=== PATIENT | male | born 1985 | race Caucasian/White ===

== ENCOUNTER 2019-06-10 19:59 | Emergency (ER) | payer OTHER ==
--- NOTE | 2019-06-10 20:30 | ER ---
Nurse's Notes [facility] Name: Tadeo Thakur Age: 33 yrs Sex: Male : 1985 Arrival Date: 06/10/2019 Time: 20:01 Bed 5 Private MD: Diagnosis: Dental caries;Dental root caries;Dentalgia Presentation: 06/10 20:10 Presenting complaint: Patient states: "Toothache since a couple of days now". cc3 Transition of care: patient was not received from another setting of care. Onset of symptoms is unknown. Risk Assessment: Do you want to hurt yourself or someone else? Patient reports no desire to harm self or others. Initial Sepsis Screen: Does the patient meet any 2 criteria? No. Patient's initial sepsis screen is negative. Does the patient have a suspected source of infection? No. Patient's initial sepsis screen is negative. Care prior to arrival: Medication(s) given: Motrin, 600 mg, taken an hour ago at home. 20:10 Method Of Arrival: Ambulatory cc3 20:10 Acuity: HAYDER 4 cc3 Triage Assessment: 20:10 General: Appears in no apparent distress. uncomfortable, Behavior is calm, cooperative, cc3 appropriate for age. Pain: Complains of pain in right upper and lower tooth. EENT: Reports pain in right upper and lower tooth. Neuro: Level of Consciousness is awake, alert, obeys commands, Oriented to person, place, time, situation, Appropriate for age. Cardiovascular: Denies chest pain, Capillary refill < 3 seconds Patient's skin is warm and dry. Respiratory: Airway is patent Respiratory effort is even, unlabored, Respiratory pattern is regular, symmetrical. GI: Abdomen is round non-distended. : No signs and/or symptoms were reported regarding the genitourinary system. Derm: Skin is intact, is healthy with good turgor, Skin is pink, warm \\T\\ dry. normal. Musculoskeletal: Circulation, motion, and sensation intact. Range of motion: intact in all extremities. Historical: - Allergies: 20:10 PENICILLINS; cc3 - PSHx: 20:10 Hernia repair; Appendectomy; left knee surgery; cc3 - Immunization history:: Adult Immunizations up to date. - Social history:: Smoking status: Patient uses tobacco products, smokes one pack cigarettes per day. - Ebola Screening: : No symptoms or risks identified at this time. Screenin:10 Abuse screen: Denies threats or abuse. Denies injuries from another. Nutritional cc3 screening: No deficits noted. Tuberculosis screening: No symptoms or risk factors identified. Fall Risk Ambulatory Aid- None/Bed Rest/Nurse Assist (0 pts). Gait- Normal/Bed Rest/Wheelchair (0 pts) Mental Status- Oriented to own ability (0 pts). Assessment: 20:10 General: see triage assessment. cc3 20:35 Reassessment: Patient appears in no apparent distress at this time. Patient and/or cc3 family updated on plan of care and expected duration. Pain level reassessed. Patient is alert, oriented x 3, equal unlabored respirations, skin warm/dry/pink. MARV Mendez discharged the patient home with prescriptions given. No IV cannula in situ. Patient left ER vitally stable and ambulatory. No valuables left in the patient's room. Patient states symptoms have improved. Vital Signs: 20:10 BP 129 / 88; Pulse 95; Resp 17 S; Temp 98.3(O); Pulse Ox 98% on R/A; Weight 106.59 kg cc3 (R); Height 5 ft. 9 in. (175.26 cm) (R); Pain 7/10; 20:10 Body Mass Index 34.70 (106.59 kg, 175.26 cm) cc3 ED Course: 20:01 Patient arrived in ED. am2 20:10 Patient has correct armband on for positive identification. Bed in low position. Call cc3 light in reach. Side rails up X 1. Pulse ox on. NIBP on. 20:10 Arm band placed on right wrist. Patient notified of wait time. cc3 20:11 Elsa Velez is Primary Nurse. cc3 20:17 Matthias Mendez PA is PHCP. jr8 20:17 Lawrence Beatty MD is Attending Physician. jr8 20:21 Triage completed. cc3 20:35 No provider procedures requiring assistance completed. Patient did not have IV access cc3 during this emergency room visit. Administered Medications: No medications were administered Outcome: 20:29 Discharge ordered by . jr8 20:35 Discharged to home ambulatory. cc3 20:35 Condition: stable 20:35 Discharge instructions given to patient, Instructed on discharge instructions, follow up and referral plans. medication usage, Demonstrated understanding of instructions, follow-up care, medications, Prescriptions given X 2. 20:38 Patient left the ED. cc3 Signatures: Matthias Mendez PA PA jr8 Michelle Patricia am2 Elsa Velez cc3
--- NOTE | 2019-06-10 20:30 | EDPHYS ---
Physician Documentation [facility] Name: Tadeo Thakur Age: 33 yrs Sex: Male : 1985 Arrival Date: 06/10/2019 Time: 20:01 Bed 5 Private MD: ED Physician Lawrence Beatty HPI: 06/10 20:25 This 33 yrs old Male presents to ER via Ambulatory with complaints of jr8 Toothache. 20:25 The patient presents with pain. The problem is located in the mouth. Onset: The jr8 symptoms/episode began/occurred acutely, 3 day(s) ago. Duration: The symptoms are continuous. Modifying factors: The symptoms are alleviated by nothing, the symptoms are aggravated by chewing, talking. Associated signs and symptoms: The patient has no apparent associated signs or symptoms. Severity of symptoms: At their worst the symptoms were mild, in the emergency department the symptoms are unchanged. The patient has experienced similar episodes in the past, a few times. The patient has not recently seen a physician. Patient with history of chronic dental decay and poor dentition. State that right upper and lower front teeth started to hurt three days ago. Has been taking Ibuprofen but with only minimal relief . Historical: - Allergies: 20:10 PENICILLINS; cc3 - PSHx: 20:10 Hernia repair; Appendectomy; left knee surgery; cc3 - Immunization history:: Adult Immunizations up to date. - Social history:: Smoking status: Patient uses tobacco products, smokes one pack cigarettes per day. - Ebola Screening: : No symptoms or risks identified at this time. ROS: 20:25 Eyes: Negative for injury, pain, redness, and discharge, Neck: Negative for injury, jr8 pain, and swelling, Cardiovascular: Negative for chest pain, palpitations, and edema, Respiratory: Negative for shortness of breath, cough, wheezing, and pleuritic chest pain, Abdomen/GI: Negative for abdominal pain, nausea, vomiting, diarrhea, and constipation, Back: Negative for injury and pain, MS/Extremity: Negative for injury and deformity, Skin: Negative for injury, rash, and discoloration, Neuro: Negative for headache, weakness, numbness, tingling, and seizure. 20:25 ENT: Positive for dental pain, Gum pain Exam: 20:25 Eyes: Pupils equal round and reactive to light, extra-ocular motions intact. Lids and jr8 lashes normal. Conjunctiva and sclera are non-icteric and not injected. Cornea within normal limits. Periorbital areas with no swelling, redness, or edema. Neck: Trachea midline, no thyromegaly or masses palpated, and no cervical lymphadenopathy. Supple, full range of motion without nuchal rigidity, or vertebral point tenderness. No Meningismus. Cardiovascular: Regular rate and rhythm with a normal S1 and S2. No gallops, murmurs, or rubs. Normal PMI, no JVD. No pulse deficits. Respiratory: Lungs have equal breath sounds bilaterally, clear to auscultation and percussion. No rales, rhonchi or wheezes noted. No increased work of breathing, no retractions or nasal flaring. Abdomen/GI: Soft, non-tender, with normal bowel sounds. No distension or tympany. No guarding or rebound. No evidence of tenderness throughout. Back: No spinal tenderness. No costovertebral tenderness. Full range of motion. Skin: Warm, dry with normal turgor. Normal color with no rashes, no lesions, and no evidence of cellulitis. MS/ Extremity: Pulses equal, no cyanosis. Neurovascular intact. Full, normal range of motion. Neuro: Awake and alert, GCS 15, oriented to person, place, time, and situation. Cranial nerves II-XII grossly intact. Motor strength 5/5 in all extremities. Sensory grossly intact. Cerebellar exam normal. Normal gait. 20:25 ENT: Exam is negative for earache, ear discharge, TM abnormalities, nasal discharge, Mouth: Lips: moist, Oral mucosa: pink and intact, moist, Gums: reddened, on the frenulum and gums, Tongue: is moist, Posterior pharynx: Airway: patent, Tonsils: are normal in appearance, Uvula: midline, swelling, is not appreciated, erythema, is not appreciated, Dental exam: dental caries, that is moderate, diffusely, pain, that is moderate, specifically in the upper right cuspid (#6), upper right lateral incisor (#7), lower right first bicuspid (#28) and lower right second bicuspid (#29). Vital Signs: 20:10 BP 129 / 88; Pulse 95; Resp 17 S; Temp 98.3(O); Pulse Ox 98% on R/A; Weight 106.59 kg cc3 (R); Height 5 ft. 9 in. (175.26 cm) (R); Pain 7/10; 20:10 Body Mass Index 34.70 (106.59 kg, 175.26 cm) cc3 MDM: 20:17 Patient medically screened. jr8 20:25 Data reviewed: vital signs, nurses notes, and as a result, I will discharge patient. jr8 Data interpreted: Pulse oximetry: on room air is 98 %. Interpretation: normal. Counseling: I had a detailed discussion with the patient and/or guardian regarding: the historical points, exam findings, and any diagnostic results supporting the discharge/admit diagnosis, the need for outpatient follow up, a dentist, to return to the emergency department if symptoms worsen or persist or if there are any questions or concerns that arise at home. Administered Medications: No medications were administered Disposition: 06/11 06:37 Co-signature as Attending Physician, Lawrence Beatty MD I agree with the assessment and 4 plan of care. Disposition: 06/10/19 20:29 Discharged to Home. Impression: Dental caries, Dental root caries, Dentalgia. - Condition is Stable. - Discharge Instructions: Dental Caries, Adult, Dental Pain. - Prescriptions for Clindamycin HCl 300 mg Oral Capsule - take 1 capsule by ORAL route every 6 hours for 10 days; 40 capsule. Tramadol 50 mg Oral Tablet - take 2 tablet by ORAL route every 8 hours as needed; 16 tablet. - Medication Reconciliation Form, Thank You Letter, Antibiotic Education, Prescription Opioid Use form. - Follow up: Private Physician; When: 5 - 6 days; Reason: Recheck today's complaints, Continuance of care, Re-evaluation by your physician. - Problem is new. - Symptoms have improved. Signatures: Matthias Mendez PA PA jr8 Lawrence Beatty MD MD 4 Elsa Velez 3 Corrections: (The following items were deleted from the chart) 06/10 20:38 20:29 06/10/2019 20:29 Discharged to Home. Impression: Dental caries; Dental root cc3 caries; Dentalgia. Condition is Stable. Forms are Medication Reconciliation Form, Thank You Letter, Antibiotic Education, Prescription Opioid Use. Follow up: Private Physician; When: 5 - 6 days; Reason: Recheck today's complaints, Continuance of care, Re-evaluation by your physician. Problem is new. Symptoms have improved. jr8
== END 2019-06-10 20:38 | disposition home or self-care (01) ==
LOC: ER 19:59
DX: K02.7 Dental root caries (principal); K02.9 Dental caries, unspecified; F17.210 Nicotine dependence, cigarettes, uncomplicated; Z88.0 Allergy status to penicillin
CPT/HCPCS: 99283

== ENCOUNTER 2020-06-14 13:29 | Emergency (ER) | payer OTHER ==
[2020-06-14] MEDS ORDERED: MORPHINE 4 MG/ML SYR ONE (14:29)
[2020-06-14] MEDS ORDERED: NA CHLORIDE 0.9% 500 ML ONE (14:30)
[2020-06-14] MEDS ORDERED: ONDANSETRON 4 MG/2 ML VIAL ONE (14:30)
[2020-06-14 14:54] LABS: Absolute Lymphocytes (CBC) 3.7 K/uL (0.7-4.9); Basophils % 1.6 % (0-1.3); Hematocrit 44.1 % (39.6-49.0); Lymphocytes % 21.7 % (15.3-44.8); MPV 9.8 fL (7.6-11.3); RBC Red Blood Cell Count 4.76 M/uL (4.33-5.43)
--- NOTE | 2020-06-14 14:54 | RAD REPORT ---
EXAM DESCRIPTION: US - Scrotum Testicles - 06/14/2020 2:22 pm CLINICAL HISTORY: Testicular pain COMPARISON: None FINDINGS: Right testicle measures 4.3 x 3 x 2.7 centimeters. Echotexture is homogeneous. Normal bloo d flow Left testicle measures 4.2 x 2.7 x 2.2 centimeters. Echotexture is homogeneous. Normal blood flow The epididymides are normal in size and echotexture. Normal blood flow is seen. A 7 millimeter left spermatocele Left varicocele IMPRESSION: Left varicocele
[2020-06-14 15:09] LABS: Potassium 3.6 mmol/L (3.5-5.1)
--- NOTE | 2020-06-14 15:33 | EDPHYS ---
Physician Documentation [facility] Name: Tadeo Thakur Age: 34 yrs Sex: Male : 1985 Arrival Date: 06/14/2020 Time: 13:31 Bed 24 Private MD: ED Physician Rickie Hutson HPI: 06/14 19:27 This 34 yrs old Male presents to ER via Ambulatory with complaints of kdr Testicular Pain. 19:27 The patient presents with scrotal pain, of the left side. Onset: The symptoms/episode kdr began/occurred gradually, 4 day(s) ago. Modifying factors: The symptoms are alleviated by nothing, the symptoms are aggravated by movement, pressure. Associated signs and symptoms: The patient has no apparent associated signs or symptoms. Severity of symptoms: At their worst the symptoms were mild, moderate, in the emergency department the symptoms are unchanged. The patient has not experienced similar symptoms in the past. The patient has not recently seen a physician. Thinks he may have had a abscess before on his scrotum. Historical: - Allergies: 13:43 PENICILLINS; ss - Home Meds: 13:43 None [Active]; ss - PMHx: 13:43 None; ss - PSHx: 13:43 Hernia repair; Appendectomy; left knee surgery; ss - Immunization history:: Adult Immunizations up to date. - Social history:: Smoking status: Patient reports the use of cigarette tobacco products, smokes one pack cigarettes per day. ROS: 19:27 Constitutional: Negative for fever, chills, and weight loss, Eyes: Negative for injury, kdr pain, redness, and discharge, Neck: Negative for injury, pain, and swelling, Cardiovascular: Negative for chest pain, palpitations, and edema, Respiratory: Negative for shortness of breath, cough, wheezing, and pleuritic chest pain, Abdomen/GI: Negative for abdominal pain, nausea, vomiting, diarrhea, and constipation, Back: Negative for injury and pain, MS/Extremity: Negative for injury and deformity, Skin: Negative for injury, rash, and discoloration, Neuro: Negative for headache, weakness, numbness, tingling, and seizure activity. Psych: Negative for depression, anxiety, suicide ideation, homicidal ideation, and hallucinations, Allergy/Immunology: Negative for hives, rash, and allergies, Endocrine: Negative for neck swelling, polydipsia, polyuria, polyphagia, and marked weight changes, Hematologic/Lymphatic: Negative for swollen nodes, abnormal bleeding, and unusual bruising. 19:27 : Positive for testicular pain of the left testicle. Exam: 19:27 Constitutional: This is a well developed, well nourished patient who is awake, alert, kdr and in no acute distress. Head/Face: Normocephalic, atraumatic. 19:27 : There is a draining abscess on the left upper area of the left scrotum. There is a large area of surrounding induration. Vital Signs: 13:40 BP 142 / 75; Pulse 125; Resp 20; Temp 98.2(O); Pulse Ox 98% on R/A; Weight 104.33 kg; ss Height 5 ft. 9 in. (175.26 cm); Pain 8/10; 16:30 BP 119 / 51; Pulse 86; Resp 18; Pulse Ox 99% on R/A; Pain 5/10; ls4 17:37 BP 131 / 80; Pulse 75; Resp 16; Temp 97.9(O); Pulse Ox 99% on R/A; Pain 3/10; ls4 18:02 BP 133 / 80; Pulse 79; Resp 17; Pulse Ox 99% on R/A; Pain 5/10; ls4 19:00 BP 122 / 72; Pulse 90; Resp 14; Temp 98.0; Pulse Ox 99% on R/A; Pain 4/10; ls4 20:00 BP 121 / 57; Pulse 74; Resp 16; Temp 98.0; Pulse Ox 98% on R/A; Pain 5/10; ls4 13:40 Body Mass Index 33.96 (104.33 kg, 175.26 cm) ss MDM: 15:32 Patient medically screened. kdr 19:27 Data reviewed: vital signs, nurses notes. Counseling: I had a detailed discussion with kdr the patient and/or guardian regarding: the historical points, exam findings, and any diagnostic results supporting the discharge/admit diagnosis, lab results, radiology results, the need to transfer to another facility, [facility] does not immediately have the required specialist, Need urologist to I\T\D - none available here . ED course: The patient has subsequently decided to leave - states he has things to take care of at home - his has been ill. [facility]. Advised hi that immediate follow-up very important and that if [facility] that he should come back to [facility]. 20:45 Differential diagnosis: nonspecific abdominal pain, UTI, Scrotal Abscess. health system 06/14 13:54 Order name: CBC with Diff; Complete Time: 15:20 kdr 06/14 13:54 Order name: Chem 7; Complete Time: 15:20 kdr 06/14 13:54 Order name: Scrotum Testicles US; Complete Time: 20:37 kdr 06/14 19:28 Order name: Urine Dipstick--Ancillary (enter results); Complete Time: 20:37 eb 06/14 13:54 Order name: Urine Dipstick-Ancillary (obtain specimen); Complete Time: 18:56 kdr Administered Medications: 14:35 Drug: morphine 4 mg Route: IVP; Site: right antecubital; ls4 17:43 Follow up: Response: No adverse reaction; Marked relief of symptoms ls4 14:35 Drug: Zofran (Ondansetron) 4 mg Route: IVP; Site: right antecubital; ls4 16:35 Follow up: Response: No adverse reaction; Marked relief of symptoms ls4 14:35 Drug: NS 0.9% 500 ml Route: IV; Rate: bolus; Site: right antecubital; ls4 17:05 Follow up: IV Status: Completed infusion; IV Intake: 500ml ls4 16:07 Drug: Cipro 500 mg Route: PO; ls4 16:30 Follow up: Response: No adverse reaction ls4 16:08 Drug: Clindamycin 900 mg Route: IVPB; Infused Over: 30 mins; Site: right antecubital; ls4 16:38 Follow up: IV Status: Completed infusion; IV Intake: 50ml ls4 Disposition: 06/14/20 15:32 Transfer ordered to [facility]. Diagnosis is Scrotal Abscess. - Reason for transfer: Higher level of care. - Accepting physician is [facility]. - Condition is Fair. - Problem is new. - Symptoms have improved. - Notes: [facility] or return here as soon as possible. If you do not get immediate evaluation by a Urologist or surgeon you may suffer catistrophic injury to your scrotum and penis Signatures: Dispatcher [employer] Moustapha Gregg RN RN sg Gume Ge MD MD kdr Tamera San RN RN ss Lisa Mccoy RN RN ls4 Rickie Hutson MD MD [id number] Corrections: (The following items were deleted from the chart) 21:58 15:32 06/14/2020 15:32 Transfer ordered to [facility]. Diagnosis sg is Scrotal Abscess. Reason for transfer: Higher level of care. Accepting physician is [facility]. Condition is Fair. Problem is new. Symptoms have improved. kdr
--- NOTE | 2020-06-14 15:33 | ER ---
Nurse's Notes [facility] Name: Tadeo Thakur Age: 34 yrs Sex: Male : 1985 Arrival Date: 06/14/2020 Time: 13:31 Bed 24 Private MD: Diagnosis: Scrotal Abscess Presentation: 06/14 13:40 Chief complaint: Patient states: scrotal pain and swelling x 3-4 days. Pt believes he ss may have an abscess. Coronavirus screen: Patient denies a cough. Patient denies shortness of breath or difficulty breathing. Patient denies measured and/or subjective temperature greater than 100.4F prior to today's visit. Patient denies travel on a cruise ship or to a country the [facility] currently lists as an affected area. Patient denies contact with known and/or suspected case of COVID-19. Ebola Screen: Patient denies exposure to infectious person. Patient denies travel to an Ebola-affected area in the 21 days before illness onset. Initial Sepsis Screen: Does the patient meet any 2 criteria? HR > 90 bpm. No. Patient's initial sepsis screen is negative. Does the patient have a suspected source of infection? Yes: Skin breakdown/wound. Risk Assessment: Do you want to hurt yourself or someone else? Patient reports no desire to harm self or others. Onset of symptoms was June 10, 2020. 13:40 Method Of Arrival: Ambulatory ss 13:40 Acuity: HAYDER 2 ss Triage Assessment: 16:13 General: Appears in no apparent distress. comfortable, Behavior is calm, cooperative. ls4 Pain: Complains of pain in groin Pain currently is 10 out of 10 on a pain scale. Neuro: No deficits noted. Cardiovascular: No deficits noted. Respiratory: No deficits noted. : Reports Scrotal pain: sudden onset. Historical: - Allergies: 13:43 PENICILLINS; ss - Home Meds: 13:43 None [Active]; ss - PMHx: 13:43 None; ss - PSHx: 13:43 Hernia repair; Appendectomy; left knee surgery; ss - Immunization history:: Adult Immunizations up to date. - Social history:: Smoking status: Patient reports the use of cigarette tobacco products, smokes one pack cigarettes per day. Screenin:09 Abuse screen: Denies threats or abuse. Denies injuries from another. Nutritional ls4 screening: No deficits noted. Tuberculosis screening: No symptoms or risk factors identified. Fall Risk None identified. Assessment: 15:15 Reassessment: Patient appears in no apparent distress at this time. Patient and/or ls4 family updated on plan of care and expected duration. Pain level reassessed. Patient is alert, oriented x 3, equal unlabored respirations, skin warm/dry/pink. 18:02 Reassessment: Patient and/or family updated on plan of care and expected duration. Pain ls4 level reassessed. Patient is alert, oriented x 3, equal unlabored respirations, skin warm/dry/pink. Patient states symptoms have improved. Vital Signs: 13:40 BP 142 / 75; Pulse 125; Resp 20; Temp 98.2(O); Pulse Ox 98% on R/A; Weight 104.33 kg; ss Height 5 ft. 9 in. (175.26 cm); Pain 8/10; 16:30 BP 119 / 51; Pulse 86; Resp 18; Pulse Ox 99% on R/A; Pain 5/10; ls4 17:37 BP 131 / 80; Pulse 75; Resp 16; Temp 97.9(O); Pulse Ox 99% on R/A; Pain 3/10; ls4 18:02 BP 133 / 80; Pulse 79; Resp 17; Pulse Ox 99% on R/A; Pain 5/10; ls4 19:00 BP 122 / 72; Pulse 90; Resp 14; Temp 98.0; Pulse Ox 99% on R/A; Pain 4/10; ls4 20:00 BP 121 / 57; Pulse 74; Resp 16; Temp 98.0; Pulse Ox 98% on R/A; Pain 5/10; ls4 13:40 Body Mass Index 33.96 (104.33 kg, 175.26 cm) ED Course: 13:31 Patient arrived in ED. ag5 13:42 Triage completed. ss 13:43 Arm band placed on right wrist. ss 13:51 Lisa Mccoy, PARMJIT is Primary Nurse. ls4 13:52 Gume Ge MD is Attending Physician. kdr 14:01 Patient has correct armband on for positive identification. Bed in low position. Call ls4 light in reach. Side rails up X 1. drafter castings on. Pulse ox on. NIBP on. 14:02 No provider procedures requiring assistance completed. Inserted saline lock: 18 gauge ls4 in right antecubital area, using aseptic technique. Blood collected. 14:02 Initial lab(s) drawn, by me, sent to lab. Urine collected:. Patient maintains SpO2 ls4 saturation greater than 95% on room air. 14:16 Scrotum Testicles US In Process Unspecified. EDMS 16:22 initiated a transfer with Edgar from the [facility]/ faxed over the patient records as eb requested to [phone]. 18:02 Resting quietly. ls4 19:01 refaxed patient information to [place] from the [place] transfer center. eb 20:45 Attending Physician role handed off by Gume Ge MD [facility] 20:45 Rickie Hutson MD is Attending Physician. [facility] 21:08 Report given to Drake PARNELL, charge nurse [facility] of [place]. ls4 Administered Medications: 14:35 Drug: morphine 4 mg Route: IVP; Site: right antecubital; ls4 17:43 Follow up: Response: No adverse reaction; Marked relief of symptoms ls4 14:35 Drug: Zofran (Ondansetron) 4 mg Route: IVP; Site: right antecubital; ls4 16:35 Follow up: Response: No adverse reaction; Marked relief of symptoms ls4 14:35 Drug: NS 0.9% 500 ml Route: IV; Rate: bolus; Site: right antecubital; ls4 17:05 Follow up: IV Status: Completed infusion; IV Intake: 500ml ls4 16:07 Drug: Cipro 500 mg Route: PO; ls4 16:30 Follow up: Response: No adverse reaction ls4 16:08 Drug: Clindamycin 900 mg Route: IVPB; Infused Over: 30 mins; Site: right antecubital; ls4 16:38 Follow up: IV Status: Completed infusion; IV Intake: 50ml ls4 Intake: 16:38 IV: 50ml; Total: 50ml. ls4 17:05 IV: 500ml; Total: 550ml. ls4 Outcome: 15:32 ER care complete, transfer ordered by . kdr 21:58 Patient left the ED. sg Signatures: Dispatcher [employer] EDIA Moustapha Elena RN RN Gume Ge MD MD [facility] Tamera San RN RN ss Jie Richardson Lisa, RN RN ls4 Mir Verdin ag5 Rickie Hutson MD MD 7 Corrections: (The following items were deleted from the chart) 13:48 13:40 Acuity: HAYDER 3 ss ss 17:43 17:42 Response: No adverse reaction; Marked relief of symptoms ls4 ls4 17: 17:05 BP 170 / 6; Response: No adverse reaction; Marked relief of symptoms ls4 ls4
[2020-06-14] MEDS ORDERED: CIPROFLOXACIN HCL 500 MG TAB ONE (16:11)
[2020-06-14] MEDS ORDERED: CLINDAMYCIN 900MG/D5W 900 MG/50 ML IVPB IV ONE (16:11)
[2020-06-14 19:31] LABS: Urine Blood TRACE (NEG); Urine Glucose NEGATIVE (NEG); Urine Protein NEGATIVE (NEG); Urine Specific Gravity 1.025 (1.005-1.030); Urine pH 5.5 (5.0-7.0)
[2020-06-14 22:26] VITALS: TEMP 98
[2020-06-14 22:28] VITALS: BP 121/57; O2SAT 98
== END 2020-06-14 21:58 ==
LOC: ER 13:29
DX: N49.2 Inflammatory disorders of scrotum (principal); F17.210 Nicotine dependence, cigarettes, uncomplicated; Z88.0 Allergy status to penicillin
CPT/HCPCS: 96365; 96361; 85025; 80048; 36415; 81003; 76870; 96375; 99285; J7040; J2405

== ENCOUNTER 2021-01-12 15:55 | Inpatient (IN) | payer OTHER, SELFPAY ==
--- OUTSIDE RECORDS SUMMARY | 2021-01-12 15:58 | XMS REPORT | Continuity of Care Document ---
:1985 Author Organization [facility] t Address [facility] Elijah Cheng [address] [place] [id number] Care Team Providers Name Role Phone Shree Crowell NP Attending Clinician Problems This patient has no known problems. Allergies, Adverse Reactions, Alerts This patient has no known allergies or adverse reactions. Medications This patient has no known medications. Procedures This patient has no known procedures. Encounters Start End Encounter Admission Attending Care Care Encounter Source Date/Time Date/Time Type Type Clinicians Facility Department ID 2020-11-21 2020-11-21 Emergency [facility] [id number] 09:58:00 10:54:00 Ursula Antunez [id number] [place] [id number] [place] [id number] Results This patient has no known results.
[2021-01-12] MEDS ORDERED: HYDROCODONE/CHLORPHEN 5 ML/OSYR ONE (19:33)
[2021-01-12] MEDS ORDERED: NA CHLORIDE 0.9% 1,000 ML ONE (19:34)
[2021-01-12] MEDS ORDERED: ALBUTEROL INHALER 60 PUFF/8 GM IH ONE (19:34)
[2021-01-12] MEDS ORDERED: dexAMETHasone 10 MG/ML VIAL ONE (19:34)
[2021-01-12 19:37] LABS: Absolute Lymphocytes (CBC) 1.9 K/uL (0.7-4.9); Basophils % 0.6 % (0-1.3); Lymphocytes % 23.5 % (15.3-44.8); MPV 9.7 fL (7.6-11.3); RBC Red Blood Cell Count 4.43 M/uL (4.33-5.43)
[2021-01-12 19:56] LABS: ALT/SGPT 45 U/L (12-78); AST/SGOT 69 U/L (15-37); Albumin 3.2 g/dL (3.4-5.0); Alkaline Phosphatase 52 U/L (45-117); BUN Blood Urea Nitrogen 12 mg/dL (7-18); Bicarbonate 27 mmol/L (21-32); Bilirubin Total 0.7 mg/dL (0.2-1.0); Glucose Level 99 mg/dL (74-106); Protein, Total 7.4 g/dL (6.4-8.2); Sodium Level 135 mmol/L (136-145); Troponin (Emerg Dept Use Only) < 0.02 ng/mL (0.0-0.045)
--- NOTE | 2021-01-12 20:43 | RAD REPORT ---
EXAM DESCRIPTION: RAD - Chest Single View - 01/12/2021 7:24 pm CLINICAL HISTORY: SOB, COVID positive COMPARISON: None TECHNIQUE: AP portable chest image was obtained 01/12/2021 7:24 pm . FINDINGS: Bilateral patchy airspace opacification is present. No focal lobar consolidation. Heart an d vasculature are normal. No measurable pleural effusion and no pneumothorax. No acute bony abnormali ty seen. No acute aortic findings suspected. IMPRESSION: Bilateral lung parenchymal opacification consistent with viral infiltrate. Given the provided clinical history, bilateral COVID-19 pneumonia is most likely.
--- NOTE | 2021-01-12 21:32 | ER ---
Nurse's Notes [facility] Name: Tadeo Thakur Age: 35 yrs Sex: Male : 1985 Arrival Date: 01/12/2021 Time: 15:58 Bed 16 Private MD: Diagnosis: Pneumonia due to SARS-associated coronavirus Presentation: 01/12 16:16 Chief complaint: Patient states: Covid+ 01/04/2021. S/S started 01/02/2021. Cough and SOB ca1 is getting worse, fever on and off, loss of appetite and chest pains. Light headed and muscle spasms. Coronavirus screen: Client denies travel out of the [place] in the last 14 days. Client reports previous positive COVID test result. Date of collection: January 04, 2021. Ebola Screen: Patient negative for fever greater than or equal to 101.5 degrees Fahrenheit, and additional compatible Ebola Virus Disease symptoms Patient denies exposure to infectious person. Patient denies travel to an Ebola-affected area in the 21 days before illness onset. No symptoms or risks identified at this time. Initial Sepsis Screen: Does the patient meet any 2 criteria? No. Patient's initial sepsis screen is negative. Does the patient have a suspected source of infection? No. Patient's initial sepsis screen is negative. Risk Assessment: Do you want to hurt yourself or someone else? Patient reports no desire to harm self or others. Onset of symptoms was January 12, 2021. 16:16 Method Of Arrival: Ambulatory ca1 16:16 Acuity: HAYDER 3 ca1 Triage Assessment: 23:55 Respiratory: Reports shortness of breath cough that is Onset: The symptoms/episode ll2 began/occurred the patient has moderate shortness of breath. 23:55 General: Appears distressed. ll2 Historical: - Allergies: 16:20 PENICILLINS; ca1 - Home Meds: 16:20 None [Active]; ca1 - PMHx: 16:20 None; ca1 - PSHx: 16:20 Hernia repair; Appendectomy; left knee surgery; ca1 - Immunization history:: Flu vaccine is not up to date. - Social history:: Smoking status: Patient reports the use of cigarette tobacco products, smokes one pack cigarettes per day. Screenin:21 Abuse screen: Denies threats or abuse. Denies injuries from another. Nutritional jl7 screening: No deficits noted. Tuberculosis screening: No symptoms or risk factors identified. Fall Risk IV access (20 points). Total Lakhani Fall Scale indicates No Risk (0-24 pts). Assessment: 19:30 General: Appears distressed, comfortable, Behavior is. Pain: Denies pain. Neuro: Level ll2 of Consciousness is awake, alert, obeys commands, Oriented to person, place, time, situation. Cardiovascular: Patient's skin is warm and dry. Respiratory: Airway is patent Respiratory effort is even, unlabored, Respiratory pattern is regular, symmetrical, Breath sounds are coarse. 20:30 Reassessment: Patient and/or family updated on plan of care and expected duration. Pain ll2 level reassessed. Patient is alert, oriented x 3, equal unlabored respirations, skin warm/dry/pink. 21:30 Reassessment: Patient and/or family updated on plan of care and expected duration. Pain ll2 level reassessed. Patient is alert, oriented x 3, equal unlabored respirations, skin warm/dry/pink. 22:30 Reassessment: Patient and/or family updated on plan of care and expected duration. Pain ll2 level reassessed. Patient is alert, oriented x 3, equal unlabored respirations, skin warm/dry/pink. 01/13 00:41 Reassessment: pt transferred to 4th floor via stretcher with tech, report called to bharat last RN. Vital Signs: 01/12 16:16 BP 109 / 61; Pulse 106; Resp 20 S; Temp 97.8(TE); Pulse Ox 97% on R/A; Weight 113.4 kg ca1 (R); Height 5 ft. 9 in. (175.26 cm) (R); Pain 9/10; 20:55 BP 124 / 80; Pulse 104; Resp 28; Pulse Ox 93% ; ll2 16:16 Body Mass Index 36.92 (113.40 kg, 175.26 cm) ca1 ED Course: 15:58 Patient arrived in ED. as 16:20 Triage completed. ca1 16:20 Arm band placed on right wrist. ca1 18:10 Raúl Becerril NP is PHCP. pm1 18:10 Danilo Weldon MD is Attending Physician. pm1 19:21 Patient has correct armband on for positive identification. Placed in gown. Bed in low jl7 position. Call light in reach. Side rails up X 1. dry cell sealer on. Pulse ox on. NIBP on. 19:24 CXR XRAY In Process Unspecified. EDMS 19:30 No provider procedures requiring assistance completed. ll2 19:48 Raeann Childress, PARMJIT is Primary Nurse. ll2 21:31 Luis Alberto Baker FNP-C is Hospitalizing Provider. pm1 21:31 Supa Weldon MD is Hospitalizing Provider. la1 21:54 CT Chest For PE Angio In Process Unspecified. EDMS 22:47 Blood Culture Adult (2) Sent. ll2 22:47 C-Reactive Protein Sent. ll2 23:12 Contacted [place] [facility] as the pt wishes to stay here. Referral ID#: [id number]. Notification ID#: [id number]. Information passed on to YOAV Loving Night Hospitalist. 01/13 02:32 Patient admitted, IV remains in place. ll2 Administered Medications: 01/12 18:45 CANCELLED (Physician Discretion): Decadron 10 mg IM once pm1 19:25 Drug: Albuterol HFA Inhaler 2 puffs Route: Inhalation; ll2 19:49 Drug: NS 0.9% 1000 ml Route: IV; Rate: 1000 ml; Site: left antecubital; ll2 19:49 Drug: Decadron - Dexamethasone 10 mg Route: IVP; Site: left antecubital; ll2 20:56 Follow up: Response: No adverse reaction ll2 19:50 Drug: Tussionex Pennkinetic ER 5 ml Route: PO; ll2 20:50 Follow up: Response: No adverse reaction ll2 Outcome: 21:31 Decision to Hospitalize by Provider. pm1 0222 00:42 Patient left the ED. ll2 00:45 Admitted to Med/surg accompanied by tech, via stretcher, with oxygen. ll2 00:45 Condition: stable 00:45 Instructed on the need for admit. Signatures: Dispatcher [employer] EDMS Chayo Saleem Lee, FNP-C FNP-[facility] Raúl Becerril, BRANT REEL CUTTER pm1 Breanna Miguel RN RN jl7 Cyndie Payton RN RN ca1 Raeann Childress, RN RN ll2 Chloe, Chon tt3
--- NOTE | 2021-01-12 21:32 | EDPHYS ---
Physician Documentation [facility] Name: Tadeo Thakur Age: 35 yrs Sex: Male : 1985 Arrival Date: 01/12/2021 Time: 15:58 Bed 16 Private MD: ED Physician Danilo Weldon HPI: 01/12 19:09 This 35 yrs old Male presents to ER via Ambulatory with complaints of pm1 Shortness Of Breath - covid+, Chest Pain, Abdominal Pain, Decreased Appetite. 19:09 The patient has shortness of breath at rest. Onset: The symptoms/episode began/occurred pm1 10 day(s) ago. Duration: The symptoms are continuous, and are steadily getting worse. The patient's shortness of breath is aggravated by coughing, light activity, is alleviated by nothing. Associated signs and symptoms: Pertinent positives: productive cough, fever, decreased appetite, chest pain, muscle spasm in abdominal area, dizziness. Severity of symptoms: in the emergency department the symptoms are worse. covid positive diagnosis on 01/04. Historical: - Allergies: 16:20 PENICILLINS; ca1 - Home Meds: 16:20 None [Active]; ca1 - PMHx: 16:20 None; ca1 - PSHx: 16:20 Hernia repair; Appendectomy; left knee surgery; ca1 - Immunization history:: Flu vaccine is not up to date. - Social history:: Smoking status: Patient reports the use of cigarette tobacco products, smokes one pack cigarettes per day. ROS: 19:09 ENT: Negative for injury, pain, and discharge, Neck: Negative for injury, pain, and pm1 swelling. 19:09 Back: Negative for injury and pain, MS/Extremity: Negative for injury and deformity, Skin: Negative for injury, rash, and discoloration, Neuro: Negative for headache, weakness, numbness, tingling, and seizure. 19:09 Constitutional: Positive for body aches, fever, poor PO intake. 19:09 Cardiovascular: Positive for chest pain. 19:09 Respiratory: Positive for cough, shortness of breath. 19:09 Abdomen/GI: Positive for abdominal pain, nausea, diarrhea, Negative for vomiting. Exam: 19:09 Skin: Warm, dry with normal turgor. Normal color with no rashes, no lesions, and no pm1 evidence of cellulitis. MS/ Extremity: Pulses equal, no cyanosis. Neurovascular intact. Full, normal range of motion. 19:09 Constitutional: The patient appears well developed, well hydrated, well groomed, well nourished, obviously ill. 19:09 Cardiovascular: Exam negative for acute changes, Rate: tachycardic, actual rate is 106 bpm, Rhythm: regular, Pulses: no pulse deficits are appreciated, Edema: is not appreciated. 19:09 Respiratory: mild respiratory distress is noted, Respirations: tachypnea, Breath sounds: are clear throughout. 19:09 Abdomen/GI: Inspection: abdomen appears normal, Palpation: abdomen is soft and non-tender, in all quadrants. 19:09 Neuro: Exam negative for acute changes, Orientation: is normal, Mentation: is normal, Motor: is normal, moves all fours. Vital Signs: 16:16 BP 109 / 61; Pulse 106; Resp 20 S; Temp 97.8(TE); Pulse Ox 97% on R/A; Weight 113.4 kg ca1 (R); Height 5 ft. 9 in. (175.26 cm) (R); Pain 9/10; 20:55 BP 124 / 80; Pulse 104; Resp 28; Pulse Ox 93% ; ll2 16:16 Body Mass Index 36.92 (113.40 kg, 175.26 cm) ca1 MDM: 18:28 Patient medically screened. pm1 21:29 Data reviewed: vital signs. Data interpreted: Pulse oximetry: on room air is 93 %. pm1 Counseling: I had a detailed discussion with the patient and/or guardian regarding: the historical points, exam findings, and any diagnostic results supporting the discharge/admit diagnosis, lab results, radiology results, the need for further work-up and treatment in the hospital. 01/12 18:44 Order name: Flu; Complete Time: 13:06 pm1 01/12 18:44 Order name: Strep; Complete Time: 13:06 pm1 01/12 18:45 Order name: CBC with Diff; Complete Time: 20:12 pm1 01/12 18:45 Order name: CMP; Complete Time: 22:53 pm1 01/12 18:45 Order name: Troponin (emerg Dept Use Only); Complete Time: 22:53 pm1 01/12 21:24 Order name: Blood Culture Adult (2) pm1 01/12 21:24 Order name: C-Reactive Protein pm1 01/12 21:24 Order name: Procalcitonin; Complete Time: 13:06 pm1 01/12 21:24 Order name: PT-INR; Complete Time: 13:06 pm1 01/12 21:24 Order name: Ptt, Activated; Complete Time: 13:06 pm1 01/12 21:24 Order name: Blood Culture EDMS 01/12 21:46 Order name: C-Reactive Protein; Complete Time: 22:53 EDMS 01/12 17:08 Order name: EKG; Complete Time: 17:08 ca1 01/12 17:08 Order name: EKG - Nurse/Tech; Complete Time: 17:08 ca1 01/12 18:44 Order name: CXR XRAY; Complete Time: 20:48 pm1 01/12 18:44 Order name: Droplet/Contact Precautions; Complete Time: 19:13 pm1 01/12 18:44 Order name: Labs collected and sent; Complete Time: 19:49 pm1 01/12 18:44 Order name: O2 Per Protocol; Complete Time: 19:49 pm1 01/12 20:29 Order name: CT Chest For PE Angio; Complete Time: 13:06 pm1 01/12 21:24 Order name: O2 Sat Monitoring; Complete Time: 22:47 pm1 01/12 21:46 Order name: Ferritin; Complete Time: 22:53 EDMS 01/12 23:09 Order name: Urine Dipstick--Ancillary (enter results); Complete Time: 13:06 tt3 01/12 23:55 Order name: Throat Culture EDLA Administered Medications: 18:45 CANCELLED (Physician Discretion): Decadron 10 mg IM once pm1 19:25 Drug: Albuterol HFA Inhaler 2 puffs Route: Inhalation; ll2 19:49 Drug: NS 0.9% 1000 ml Route: IV; Rate: 1000 ml; Site: left antecubital; ll2 19:49 Drug: Decadron - Dexamethasone 10 mg Route: IVP; Site: left antecubital; ll2 20:56 Follow up: Response: No adverse reaction ll2 19:50 Drug: Tussionex Pennkinetic ER 5 ml Route: PO; ll2 20:50 Follow up: Response: No adverse reaction 2 Disposition: 02/22 16:56 Co-signature as Attending Physician, Danilo Weldon MD. rn Disposition: 01/12/21 21:31 Hospitalization ordered by Supa Weldon for Observation. Preliminary diagnosis is Pneumonia due to SARS-associated coronavirus. - Bed requested for Telemetry/MedSurg (observation). - Status is Observation. ll2 - Condition is Stable. - Problem is new. - Symptoms have improved. Signatures: Dispatcher [employer] EDLA Danilo Weldon MD MD rn Attema, Luis Alberto, YOAV-Trevor SENIOR JAVA ARCHITECT-[facility] Radha Kincaid RN RN cg Raúl Becerril, SERVICE TECHNICIAN COPIER SERVICE TECHNICIAN COPIER pm1 Cyndie Payton RN RN ca1 Raeann Childress, PARMJIT RN ll2 Corrections: (The following items were deleted from the chart) 01/12 18:45 18:44 Decadron 10 mg IM once ordered. pm1 pm1 21:32 21:31 Hospitalization Ordered by Luis Alberto DAVISP-C for Observation. Preliminary la1 diagnosis is Pneumonia due to SARS-associated coronavirus. Bed requested for Telemetry/MedSurg (observation). Status is Observation. Condition is Stable. Problem is new. Symptoms have improved. pm1 21:45 21:24 C-Reactive Protein ordered. EDMS EDMS 21:45 21:24 FERRITIN+C.LAB.BRZ ordered. EDLA EDMS 23:55 21:32 01/12/2021 21:31 Hospitalization Ordered by Supa Weldon MD for Observation. cg Preliminary diagnosis is Pneumonia due to SARS-associated coronavirus. Bed requested for Telemetry/MedSurg (observation). Status is Observation. Condition is Stable. Problem is new. Symptoms have improved. la1 01/13 00:42 01/12 23:55 01/12/2021 21:31 Hospitalization Ordered by Spua Weldon MD for ll2 Observation. Preliminary diagnosis is Pneumonia due to SARS-associated coronavirus. Bed requested for Telemetry/MedSurg (observation). Status is Observation. Condition is Stable. Problem is new. Symptoms have improved. cg
[2021-01-12 22:06] LABS: Ferritin 854.4 ng/mL (26-388)
--- NOTE | 2021-01-12 22:39 | P.HP ---
Certification for Inpatient Patient admitted to: Observation With expected LOS: <2 Midnights Patient will require the following post-hospital care: None Practitioner: I am a practitioner with admitting privileges, knowledge of patient current condition, hospital course, and medical plan of care. Services: Services provided to patient in accordance with Admission requirements found in Title 42 Section 412.3 of the Code of Federal Regulations <Luis Alberto Baker - Last Filed: 01/12/21 22:37> Patient History Date of Service: 01/12/21 Primary Care Provider: TINO Reason for admission: COVID pneumonia History of Present Illness: 35-year-old male with history of tobacco abuse presents emergency department for shortness of breath. Patient reports testing positive for Gonzalez virus on 01/05/2021. Patient reports increasing shortness of breath since this diagnosis. Today in the emergency department patient was evaluated initial workup unremarkable, CRP/ferritin/pro calcitonin/CT PE protocol pending. Chest x-ray suggestive of bilateral infiltrate likely viral. Patient tachypneic, dyspneic especially with exertion, sats in the low 90s on room air. ED provider wishes to admit for further evaluation and management. When I saw the patient in the ER he was awake, alert, oriented x3. Patient ta chypneic respiratory rate around 28 saturations around 91-92 on room air. 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 - Family History Father -: Heart disease, Hypertension, Diabetes Mother -: Heart disease, Hypertension, Diabetes - Social History Smoking Status: Current some day smoker Counseled patient to stop smoking for: less than 10 minutes Smoking therapy provided: No Alcohol use: No CD- Drugs: No Caffeine use: Yes Place of Residence: Home <Luis Alberto Baker - Last Filed: 01/12/21 22:37> Date of Service: 01/13/21 <Supa Weldon - Last Filed: 01/13/21 22:39> Review of Systems 10-point ROS is otherwise unremarkable Respiratory: Cough, Shortness of Breath, SOB with Excertion <Luis Alberto Baker - Last Filed: 01/12/21 22:37> Physical Examination - Physical Exam General: Alert, In no apparent distress HEENT: Atraumatic, PERRLA, Mucous membr. moist/pink Neck: Supple, 2+ carotid pulse no bruit, No LAD Respiratory: Normal air movement, Diminished (Bilaterally) Cardiovascular: Regular rate/rhythm, Normal S1 S2 Gastrointestinal: Normal bowel sounds, No tenderness Musculoskeletal: No tenderness Integumentary: No rashes Neurological: Normal speech, Normal strength at 5/5 x4 extr, Normal tone, Normal affect - Studies Laboratory Data (last 24 hrs) 01/12/21 19:29: Sodium 135 L, Potassium 4.0, BUN 12, Creatinine 0.96, Glucose 99, Total Bilirubin 0.7, AST 69 H, ALT 45, Alkaline Phosphatase 52 01/12/21 19:29: WBC 7.90, Hgb 13.8, Hct 40.0, Plt Count 167 <Luis Alberto Baker - Last Filed: 01/12/21 22:37> - Studies Laboratory Data (last 24 hrs) 01/13/21 05:00: Magnesium Cancelled 01/13/21 03:57: Sodium 136, Potassium 4.3, BUN 12, Creatinine 0.80, Glucose 154 H, Magnesium 3.1 H 01/13/21 03:57: WBC 4.00 L D, Hgb 13.3 L, Hct 40.0, Plt Count 165 01/12/21 22:23: PT 13.6 H, INR 1.18, APTT 29.9 Microbiology Data (last 24 hrs): 01/12/21 22:49 Nasopharnyx Influenza Type A Antigen Screen - Final 01/12/21 22:49 Nasopharnyx Influenza Type B Antigen Screen - Final 01/12/21 22:49 Throat Group A Streptococcus Rapid Screen - Final <Supa Weldon - Last Filed: 01/13/21 22:39> Assessment and Plan - Plan Assessment COVID-19 pneumonia Plan COVID-19 pneumonia: Trend CRP, ferritin levels. Continue with IV steroids, oral supplements. Daily room air saturations, room air saturations for home O2. Social work consult in for home O2 if patient qualifies. DVT prophylaxis Lovenox 40 mg subcutaneous once daily. Continue daily aspirin. Pulmonology consult in place. Appreciate further input from pulmonology. Possible discharge tomorrow if patient continues to do well with home oxygen if he qualifies. Discharge Plan: Home Plan to discharge in: 24 Hours - Advance Directives Does patient have a Living Will: No Does patient have a Durable POA for Healthcare: No - Code Status/Comfort Care Code Status Assessed: Yes (Full code) Critical Care: No Time Spent Managing Pts Care (In Minutes): 55 <Luis Alberto Baker - Last Filed: 01/12/21 22:37> - Plan Agree with plan of care as noted above by Luis Alberto Baker. acute hypoxic respiratory failure secondary to COVID-19 pneumonia trend labs, continue IV steroids, oral supplements, ivermectin, wean O2 as tolerated. <Supa Weldon - Last Filed: 01/13/21 22:39>
[2021-01-12 23:06] LABS: Protime INR 1.18
[2021-01-12 23:23] LABS: Urine Blood TRACE (NEG); Urine Glucose NEGATIVE (NEG); Urine Protein 2+ (NEG); Urine Specific Gravity 1.025 (1.005-1.030)
[2021-01-13] MEDS ORDERED: ACETAMINOPHEN 500 MG TAB PO PRN (00:38)
[2021-01-13] MEDS ORDERED: ONDANSETRON 4 MG/2 ML VIAL IV PRN (00:38)
[2021-01-13 01:37] VITALS: BMI 35.1
[2021-01-13 04:43] LABS: Absolute Lymphocytes (CBC) 0.8 K/uL (0.7-4.9); Basophils % 0.2 % (0-1.3); Lymphocytes % 21.2 % (15.3-44.8); MPV 10.4 fL (7.6-11.3); RBC Red Blood Cell Count 4.32 M/uL (4.33-5.43)
[2021-01-13 05:08] LABS: BUN Blood Urea Nitrogen 12 mg/dL (7-18); Bicarbonate 26 mmol/L (21-32); Ferritin 795.9 ng/mL (26-388); Glucose Level 154 mg/dL (74-106); Magnesium 3.1 mg/dL (1.8-2.4); Potassium 4.3 mmol/L (3.5-5.1); Sodium Level 136 mmol/L (136-145)
[2021-01-13 06:31] LABS: Urine Appearance CLEAR; Urine Bilirubin NEGATIVE (NEG); Urine Blood NEGATIVE (NEG); Urine Color DK YELLOW; Urine Glucose NEGATIVE (NEG); Urine Protein NEGATIVE (NEG); Urine Specific Gravity >=1.030 (1.005-1.030)
[2021-01-13 07:00] LABS: Urine Microscopic Reflex NO UMIC
[2021-01-13] MEDS: ENOXAPARIN 40 MG/0.4 ML SQ SCH (07:56)
--- NOTE | 2021-01-13 11:29 | RAD REPORT ---
EXAM DESCRIPTION: CT Angiography Chest With Intravenous Contrast CLINICAL HISTORY: The patient is 35 years old and is Male; Cough;Chest pain TECHNIQUE: Axial computed tomographic angiography images of the chest with intravenous contrast. T his CT exam was performed using one or more of the following dose reduction techniques: automated e xposure control, adjustment of the mA and/or kV according to patient size, and/or use of iterative re construction technique. MIP reconstructed images were created and reviewed. Oblique reformatted images were created and reviewed. DLP: 523 mGy*cm COMPARISON: Chest radiograph of the same day. FINDINGS: PULMONARY ARTERIES: Unremarkable. No pulmonary embolism. AORTA: No acute findings. No thoracic aortic aneurysm. LUNGS: Bilateral groundglass opacities and diffuse interlobular septal thickening. PLEURAL SPACE: Unremarkable. No significant effusion. No pneumothorax. HEART: Unremarkable. No cardiomegaly. No significant pericardial effusion. No evidence of RV dysfunction. THYROID: Thyroid is normal. BONES/JOINTS: No acute fracture. No dislocation. SOFT TISSUES: Unremarkable. LYMPH NODES: Enlarged right paratracheal lymph node. Bihilar lymphadenopathy. LIVER: Diffuse hepatic steatosis. IMPRESSION: 1. No pulmonary embolism. 2. Commonly reported imaging features of COVID-19 pneumonia are present. Other processes such as in fluenza pneumonia and organizing pneumonia, as can be seen with drug toxicity and connective tissue d isease, can cause similar imaging pattern. PneTyp 3. Mediastinal and bihilar lymphadenopathy. 4. Diffuse hepatic steatosis. Electronically signed by: Jose Manuel Abdalla DO 01/12/2021 10:07 PM CASTING MACHINE SET UP OPERATOR Due to temporary technical issues with the PACS/Fluency reporting system, reports are being signed by the in house radiologist without review as a courtesy to ensure prompt reporting. The interpreting r adiologist is fully responsible for the content of the report.
--- NOTE | 2021-01-13 12:31 | P.CNS ---
Date of Consult: 01/13/21 Primary Care Provider: TINO Chief Complaint: COVID pneumonia History of Present Illness: Patient is 35 years of age presents to the emergency room with shortness of breath he was diagnosed with arciniega virus with every the 14 the became progressively worse and appeared in the hospital his bilateral pulmonary infiltrates mediastinal adenopathy bilateral most likely sarcoid as feeling a little better the feeling weak Allergies Penicillins Allergy (Verified 01/13/21 01:35) unknown Home Medications: NK [No Home Meds] 01/13/21 - Past Medical/Surgical History Diabetic: No -: tobacco abuse -: hernia repair -: appendectomy -: left knee sx Psychosocial/ Personal History: 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, lives with his fijosephe - Family History Father Medical History: Heart disease, Hypertension, Diabetes Mother Medical History: Heart disease, Hypertension, Diabetes - Social History Smoking Status: Current every day smoker Alcohol use: No CD- Drugs: No Caffeine use: Yes Place of Residence: Home Review of Systems General: Weakness Respiratory: Shortness of Breath Physical Examination Temp Pulse Resp BP Pulse Ox 96.5 F L 72 20 105/60 95 01/13/21 08:00 01/13/21 08:00 01/13/21 08:00 01/13/21 08:00 01/13/21 08:00 General: Alert, Oriented x3, Mild distress Respiratory: Clear to auscultation bilaterally Cardiovascular: Normal S1 S2 Laboratory Data (last 24 hrs) 01/12/21 22:23: PT 13.6 H, INR 1.18, APTT 29.9 01/12/21 19:29: Sodium 135 L, Potassium 4.0, BUN 12, Creatinine 0.96, Glucose 99, Total Bilirubin 0.7, AST 69 H, ALT 45, Alkaline Phosphatase 52 01/12/21 19:29: WBC 7.90, Hgb 13.8, Hct 40.0, Plt Count 167 - Problems (1) COVID-19 Current Visit: Yes Status: Acute Plan: Patient is 35 years of age admitted with respiratory failure from arciniega virus CT scan very suggestive he is on nasal cannula oxygen treat with steroids multi vitamin supplement and ivermectin evaluate for possible discharge tomorrow
[2021-01-13] MEDS ORDERED: IVERMECTIN 3 MG TABLET PO ONE (12:45)
[2021-01-13] MEDS: ASCORBIC ACID 500 MG TABLET PO SCH ×2 (14:22→21:45)
[2021-01-13] MEDS: METHYLPREDNISOLONE 40 MG INJ IV SCH ×2 (14:22→21:45)
--- NOTE | 2021-01-13 17:30 | P.PN ---
Subjective Date of Service: 01/13/21 Primary Care Provider: TINO Chief Complaint: COVID pneumonia Subjective: No new changes (reports still feeling SOB, dyspneic when talking to me, otherwise ok) Review of Systems 10-point ROS is otherwise unremarkable Physical Examination - Vital Signs Temperature: 97.5 F Blood Pressure: 99/60 Pulse: 68 Respirations: 18 Pulse Ox (%): 94 - Studies Laboratory Data (last 24 hrs) 01/12/21 22:23: PT 13.6 H, INR 1.18, APTT 29.9 01/12/21 19:29: Sodium 135 L, Potassium 4.0, BUN 12, Creatinine 0.96, Glucose 99, Total Bilirubin 0.7, AST 69 H, ALT 45, Alkaline Phosphatase 52 01/12/21 19:29: WBC 7.90, Hgb 13.8, Hct 40.0, Plt Count 167 Assessment & Plan Physician Review Additional Text: Physical Exam: Gen: mild distress /tachypnea HEENT: normal conjunctiva CV: RRR, no murmur Pulm: bibasilar crackles, dyspneic, talking in broken up sentences Abd: soft, NTND Ext: no edema Problem List: acute hypoxia secondary to COVID-19 pneumonia Plan COVID-19 pneumonia: CRP, ferritin elevated, trend continue IV steroids, oral supplements. daily RA sats, check RA sats for home O2. lovenox for VTE prophylaxis, consider eliquis if the patient's hospitalization was prolonged Pulmonology consulted Ivermectin ordered VTE: lovenox Code: full Dispo: possible dc home in 24-48hrs, likely will need home O2 Time Spent Managing Pts Care (In Minutes): 35
[2021-01-13] MEDS: THIAMINE HCL 100 MG TABLET PO SCH (21:43)
[2021-01-13] MEDS: MELATONIN 5 MG TABLET PO SCH (21:45)
[2021-01-13] MEDS: ATORVASTATIN 40 MG TAB PO SCH (21:45)
[2021-01-14 04:09] LABS: Absolute Lymphocytes (CBC) 1.3 K/uL (0.7-4.9); Basophils % 0.1 % (0-1.3); Lymphocytes % 14.4 % (15.3-44.8); MPV 10.7 fL (7.6-11.3); RBC Red Blood Cell Count 4.55 M/uL (4.33-5.43)
[2021-01-14 04:32] LABS: ALT/SGPT 39 U/L (12-78); AST/SGOT 38 U/L (15-37); Albumin 2.7 g/dL (3.4-5.0); Alkaline Phosphatase 49 U/L (45-117); BUN Blood Urea Nitrogen 15 mg/dL (7-18); Bicarbonate 28 mmol/L (21-32); Bilirubin Direct 0.2 mg/dL (0-0.2); Bilirubin Total 0.4 mg/dL (0.2-1.0); Ferritin 779.3 ng/mL (26-388); Glucose Level 160 mg/dL (74-106); Potassium 4.1 mmol/L (3.5-5.1); Protein, Total 6.9 g/dL (6.4-8.2); Sodium Level 138 mmol/L (136-145)
[2021-01-14] MEDS: VITAMIN D 1000 UNIT TAB PO SCH (09:38)
[2021-01-14] MEDS: ENOXAPARIN 40 MG/0.4 ML SQ SCH (09:38)
[2021-01-14] MEDS: METHYLPREDNISOLONE 40 MG INJ IV SCH ×2 (09:38→21:41)
[2021-01-14] MEDS: ASCORBIC ACID 500 MG TABLET PO SCH ×3 (09:38→21:40)
[2021-01-14] MEDS: THIAMINE HCL 100 MG TABLET PO SCH ×2 (09:38→21:40)
[2021-01-14] MEDS: ZINC SULFATE 220 MG CAP PO SCH (09:50)
--- NOTE | 2021-01-14 16:16 | P.PN ---
Subjective Date of Service: 01/14/21 Primary Care Provider: MA Chief Complaint: COVID pneumonia Patient reports shortness of breath and intermittent nonproductive cough. Physical Examination - Vital Signs Temperature: 97 F Blood Pressure: 115/58 Pulse: 78 Respirations: 22 Pulse Ox (%): 92 - Physical Exam General: Alert, In no apparent distress, Mild distress Neck: JVD not distended Respiratory: Other (Non-labored breathing) Cardiovascular: No edema, Regular rate/rhythm Gastrointestinal: Non-distended Musculoskeletal: No swelling Integumentary: No rashes Neurological: Other (No focal motor deficit.) Assessment And Plan Physician Review Additional Text: Problem List: acute hypoxia secondary to COVID-19 pneumonia Plan COVID-19 pneumonia: continue IV steroids, oral supplements. Titrate oxygen. lovenox for VTE prophylaxis, consider eliquis if the patient's hospitalization is prolonged Pulmonology input appreciated. S/p Ivermectin Social service to assist with home oxygen arrangement. Oxygen is coming from [facility].
[2021-01-14] MEDS: MELATONIN 5 MG TABLET PO SCH (21:40)
[2021-01-14] MEDS: ATORVASTATIN 40 MG TAB PO SCH (21:41)
[2021-01-15 04:07] LABS: Absolute Lymphocytes (CBC) 1.5 K/uL (0.7-4.9); Basophils % 0.1 % (0-1.3); Hematocrit 39.8 % (39.6-49.0); Lymphocytes % 11.3 % (15.3-44.8); MPV 10.5 fL (7.6-11.3); RBC Red Blood Cell Count 4.37 M/uL (4.33-5.43)
[2021-01-15 04:12] LABS: BUN Blood Urea Nitrogen 21 mg/dL (7-18); Bicarbonate 30 mmol/L (21-32); Glucose Level 173 mg/dL (74-106); Potassium 4.6 mmol/L (3.5-5.1); Sodium Level 140 mmol/L (136-145)
[2021-01-15] MEDS: VITAMIN D 1000 UNIT TAB PO SCH (08:14)
[2021-01-15] MEDS: ZINC SULFATE 220 MG CAP PO SCH (08:15)
[2021-01-15] MEDS: THIAMINE HCL 100 MG TABLET PO SCH (08:15)
[2021-01-15] MEDS: METHYLPREDNISOLONE 40 MG INJ IV SCH (08:15)
[2021-01-15] MEDS: ASCORBIC ACID 500 MG TABLET PO SCH (08:16)
[2021-01-15] MEDS: ENOXAPARIN 40 MG/0.4 ML SQ SCH (08:16)
--- NOTE | 2021-01-15 09:26 | P.DS ---
Admission Date: 01/13/21 Discharge Date: 01/15/21 Primary Care Provider: TINO Disposition: ROUTINE DISCHARGE Discharge Condition: GOOD Reason for Admission: COVID pneumonia Brief History of Present Illness: 35-year-old male with past medical history of tobacco abuse admitted with shortness of breath. He was found to be positive for COVID 19 on 01/05/2021. He started having shortness of breath for the last 3 days and has been progressively worsening and was admitted for further management. Chest x-ray suggestive of bilateral infiltrate Hospital Course: Patient was admitted and was monitored closely under telemetry and was started on IV steroids along with other supportive measures and oxygen supplementation. Patient responded well to the treatment. And was weaned out of oxygen. Patient was ambulated before Dc and this was not requiring oxygen to go home. The patient wanted go home and is being discharged home today in a stable condition with advice to follow up with PCP in 1 week and also with pulmonology in 1-2 weeks. ER precautions were discussed with the patient Vital Signs/Physical Exam: Temp Pulse Resp BP Pulse Ox 96.9 F 54 17 96/53 L 90 L 01/15/21 04:00 01/15/21 04:00 01/15/21 04:00 01/15/21 04:00 01/15/21 04:00 General: Alert, In no apparent distress HEENT: Atraumatic, Normocephalic Neck: Supple Respiratory: Normal air movement, Crackles/rales Cardiovascular: Regular rate/rhythm, Normal S1 S2 Capillary refill: <2 Seconds Gastrointestinal: Soft and benign, W/out hepatosplenomegaly Musculoskeletal: No clubbing, No swelling Integumentary: No rashes Neurological: Normal speech, Normal strength at 5/5 x4 extr Lymphatics: No axilla or inguinal lymphadenopathy Laboratory Data at Discharge: WBC 13.30 K/uL (4.3-10.9) H D 01/15/21 03:20 Hgb 13.6 g/dL (13.6-17.9) 01/15/21 03:20 Hct 39.8 % (39.6-49.0) 01/15/21 03:20 Plt Count 228 K/uL (152-406) 01/15/21 03:20 PT 13.6 SECONDS (9.5-12.5) H 01/12/21 22:23 INR 1.18 01/12/21 22:23 APTT 29.9 SECONDS (24.3-36.9) 01/12/21 22:23 Sodium 140 mmol/L (136-145) 01/15/21 03:20 Potassium 4.6 mmol/L (3.5-5.1) 01/15/21 03:20 BUN 21 mg/dL (7-18) H 01/15/21 03:20 Creatinine 0.81 mg/dL (0.55-1.3) 01/15/21 03:20 Glucose 173 mg/dL (74-106) H 01/15/21 03:20 Magnesium 3.0 mg/dL (1.8-2.4) H 01/14/21 03:15 Total Bilirubin 0.4 mg/dL (0.2-1.0) 01/14/21 03:15 AST 38 U/L (15-37) H 01/14/21 03:15 ALT 39 U/L (12-78) 01/14/21 03:15 Alkaline Phosphatase 49 U/L (45-117) 01/14/21 03:15 Home Medications: Ascorbic Acid [Vitamin C*] 500 mg PO BID #30 tablet 01/15/21 Cholecalciferol (Vitamin D3) [Vitamin D 1000 Iu Tab*] 3,000 unit PO DAILY #15 tab 01/15/21 Methylprednisolone [Medrol dosepack] 4 mg PO DIRECTED #1 chely 01/15/21 Thiamine HCl [Vitamin B-1*] 200 mg PO BID #15 tablet 01/15/21 Zinc Sulfate [Zinc Sulfate*] 220 mg PO DAILY #20 cap 01/15/21 New Medications: Methylprednisolone [Medrol dosepack] 4 mg PO DIRECTED #1 chely Thiamine HCl [Vitamin B-1*] 200 mg PO BID #15 tablet Ascorbic Acid [Vitamin C*] 500 mg PO BID #30 tablet Cholecalciferol (Vitamin D3) [Vitamin D 1000 Iu Tab*] 3,000 unit PO DAILY #15 tab Zinc Sulfate [Zinc Sulfate*] 220 mg PO DAILY #20 cap Diet: Regular Activity: Ad sojna Followup: NONE,NONE [Primary Care Provider] - Joe Lindsey MD [ACTIVE - CAN ADMIT] - Time spent managing pt's care (in minutes): 39
[2021-01-15 10:23] VITALS: BP 98/54; TEMP 97.2
[2021-01-15 10:50] VITALS: O2SAT 93
== END 2021-01-15 12:48 | disposition home or self-care (01) | DRG 177 ==
LOC: ER 15:55 → ERHOLD 22:40 → 4TH 01-13 00:29 → OBSVTOIN 01-13 19:54
PROVIDERS: ADMIT Hospitalist; ATTEND Internal Medicine
PROC: 5A09357 Assistance with Respiratory Ventilation, Less than 24 Consecutive Hours, Continuous Positive Airway Pressure (ICD-10-PCS; principal; 2021-01-13)
DX: U07.1 COVID-19 (principal); J12.82 Pneumonia due to coronavirus disease 2019; J96.01 Acute respiratory failure with hypoxia; F17.210 Nicotine dependence, cigarettes, uncomplicated; Z88.0 Allergy status to penicillin; Z90.49 Acquired absence of other specified parts of digestive tract; Z79.899 Other long term (current) drug therapy
CPT/HCPCS: 36415; 71045; 71275; 80048; 80053; 80076; 81003; 82728; 83735; 84145; 84484; 85025; 85610; 85730; 86140; 87040; 87070; 87081; 87205; 87804; 94002; 96374; 99285; G0378; J1100; J1650; J2920; J7030; Q9967

== ENCOUNTER 2021-10-27 10:29 | Emergency (ER) | payer OTHER ==
--- OUTSIDE RECORDS SUMMARY | 2021-10-27 10:32 | XMS REPORT | Continuity of Care Document ---
:1985 Author Organization [facility] t Address Formerly [facility], [facility]–[address] Elijah Cheng [address] [place] [address] Care Team Providers Name Role Phone Shree Crowell NP Attending Clinician Shree CROWELL Attending Clinician Unavailable Problems Condition Condition Condition Status Onset Resolution Last Treating Co mments Source Name Details Category Date Date Treatment Clinician Date No known No known Disease Unive rs active active ity of problems problems [facility] Allergies, Adverse Reactions, Alerts Allergy Allergy Status Severity Reaction(s) Onset Inactive Treating Comm ents Source Name Type Date Date Clinician PENICILL Drug Active Unknown-Cmnt 2019-11 Un naida INS Class 2-31 ity of 00:00: [place] 00 [facility] [place] Penicill Propensi Active Unknown - 2019-11 Childhood Univers ins ty to See comments - unknown i ty of adverse 00:00: [place] reaction 00 Medical [place] Social History Social Habit Start Date Stop Date Quantity Comments Source Sex Assigned At Uni versity [facility] Exposure to SARS-CoV-2 Not sure [facility] [place] (event) [facility] [place] Smoking Status Start Date Stop Date Source Unknown if ever smoked Universit y of [facility] Medications Ordered Filled Start Stop Current Ordering Indication Dosage Frequency Signature Comments Components Source Medication Medication Date Date Medication? Clinician (SIG) Name Name indomethaci 2019-11 Yes [id number] 50mg Take 1 Univers n 50 mg 2-31 capsule by ity of capsule 00:00: mouth 3 (three) Medical times Branch daily with meals. chlorhexidi 2019-11 Yes [id number] 15mL Swish and Univers ne 0.12 % 2-31 spit out ity of mouthwash 00:00: 15 mL 2 (two) Medical times Branch daily. clindamycin 2019-11- No [id number] 300mg Take 1 Univers 300 mg 12-02 capsule by ity of capsule 00:00: 05:59 mouth 4 [place] 00 :00 (four) Medical times Branch daily for 10 days. Vital Signs Vital Name Observation Time Observation Value Comments Source Systolic blood 2020-11-21 15:56:00 145 mm[Hg] Univer sity of pressure [facility] Diastolic blood 2020-11-21 15:56:00 80 mm[Hg] Unive rsity of pressure [facility] Heart rate 2020-11-21 15:56:00 88 /min Universi ty of [facility] Body temperature 2020-11-21 15:56:00 37.17 Anni [facility] ersity of [facility] Respiratory rate 2020-11-21 15:56:00 16 /min Univ ersity of [facility] Body height 2020-11-21 15:56:00 175.3 cm Universi ty of [facility] Body weight 2020-11-21 15:56:00 108.863 kg Universi ty of [facility] BMI 2020-11-21 15:56:00 35.44 kg/m2 [facility] [place] [facility] Oxygen saturation in 2020-11-21 15:56:00 99 /min University of Arterial blood by [place] [employer] Pulse oximetry Branch Systolic blood 2020-11-21 15:56:00 145 mm[Hg] Univer sity of [facility] Diastolic blood 2020-11-21 15:56:00 80 mm[Hg] Unive rsity of pressure [facility] Heart rate 2020-11-21 15:56:00 88 /min [facility] [place] [facility] [place] Body temperature 2020-11-21 15:56:00 37.17 Anni [facility] ersity [facility] Branch Respiratory rate 2020-11-21 15:56:00 16 /min Univ ersity of [facility] Body height 2020-11-21 15:56:00 175.3 cm [facility] [place] [facility] Body weight 2020-11-21 15:56:00 108.863 kg [facility] [place] [facility] BMI 2020-11-21 15:56:00 35.44 kg/m2 [facility] [place] [facility] Oxygen saturation in 2020-11-21 15:56:00 99 /min University of Arterial blood by [place] [employer] Pulse oximetry Branch Procedures Procedure Date / Time Performed Performing Clinician Eulogio e NOTICE OF PRIVACY 2020-11-21 15:45:44 Doctor Unassigned, No Univ [facility] PRACTICES Name Medical Branch Encounters Start End Encounter Admission Attending Care Care Encounter Source Date/Time Date/Time Type Type Clinicians Facility Department ID 2020-11-21 2020-11-21 Emergency [facility] [id number] [facility] 09:58:00 10:54:00 Myah Antunez [id number] sagar [facility] [id number] [facility] [id number] [place] [address] Branch 2020-11-21 2020-11-21 Emergency [facility] [id number] 09:58:00 10:54:00 Myah Antunez [id number] [place] [id number] [place] [id number] [facility] 2020-11-21 2020-11-[address] [facility] ERT [id number] Univers 09:58:00 09:58:00 MYAH keith [facility] Results This patient has no known results.
--- NOTE | 2021-10-27 11:37 | EDPHYS ---
Physician Documentation [facility] Name: Tadeo Thakur Age: 35 yrs Sex: Male : 1985 Arrival Date: 10/27/2021 Time: 10:30 Bed Waiting Private MD: RIMA Physician Deon Sinha HPI: 10/27 11:39 This 35 yrs old Male presents to ER via Ambulatory with complaints of Fever, Toothache. jr8 11:39 Severity of symptoms: At their worst the symptoms were moderate in the emergency jr8 department the symptoms are unchanged. It is unknown whether or not the patient has had similar symptoms in the past. The patient has been recently seen by a physician:. This is a 35-year-old male that presented to the emergency room with continued fever and to take to the left jaw. Had recently finished a round of clindamycin but continues to have persistent pain. Denies any other symptoms at this time.. Historical: - Allergies: 11:23 PENICILLINS; vg1 - Home Meds: 11:23 Lisinopril Oral [Active]; Metformin Oral [Active]; Glipizide Oral [Active]; alogliptin vg1 oral [Active]; - PMHx: 11:23 Hypertensive disorder; Diabetes mellitus; vg1 - PSHx: 11:23 Appendectomy; Hernia Repair; Knee-Left; vg1 - Immunization history:: Client reports receiving the Micky \T\ Micky single-dose vaccine. - Social history:: Smoking status: Patient/guardian denies using tobacco, the patient reports quitting approximately 1 years ago. ROS: 11:39 Constitutional: Positive for fever. jr8 11:39 ENT: Positive for dental pain. 11:39 All other systems are negative. Exam: 11:39 Head/Face: Normocephalic, atraumatic. Eyes: Pupils equal round and reactive to light, jr8 extra-ocular motions intact. Lids and lashes normal. Conjunctiva and sclera are non-icteric and not injected. Cornea within normal limits. Periorbital areas with no swelling, redness, or edema. Neck: Trachea midline, no thyromegaly or masses palpated, and no cervical lymphadenopathy. Supple, full range of motion without nuchal rigidity, or vertebral point tenderness. No Meningismus. Cardiovascular: Regular rate and rhythm with a normal S1 and S2. No gallops, murmurs, or rubs. Normal PMI, no JVD. No pulse deficits. Respiratory: Lungs have equal breath sounds bilaterally, clear to auscultation and percussion. No rales, rhonchi or wheezes noted. No increased work of breathing, no retractions or nasal flaring. Skin: Warm, dry with normal turgor. Normal color with no rashes, no lesions, and no evidence of cellulitis. MS/ Extremity: Pulses equal, no cyanosis. Neurovascular intact. Full, normal range of motion. Neuro: Awake and alert, GCS 15, oriented to person, place, time, and situation. Cranial nerves II-XII grossly intact. Motor strength 5/5 in all extremities. Sensory grossly intact. 11:39 ENT: Exam is negative for earache, ear discharge, TM abnormalities, nasal discharge, Mouth: Lips: moist, Oral mucosa: pink and intact, moist, Gums: pink, Tongue: is moist, Posterior pharynx: Airway: patent, Tonsils: are normal in appearance, Uvula: midline, non-edematous, no erythema, swelling, is not appreciated, Dental exam: dental caries, that is moderate, diffusely, fractured teeth are noted, specifically the lower left second molar (#18) and lower left second bicuspid (#20). Vital Signs: 11:21 BP 167 / 93; Pulse 99; Resp 18; Temp 98.3; Pulse Ox 100% ; Weight 108.86 kg; Height 5 vg1 ft. 9 in. (175.26 cm); Pain 5/10; 11:21 Body Mass Index 35.44 (108.86 kg, 175.26 cm) vg1 MDM: 11:35 Data reviewed: vital signs, nurses notes, and as a result, I will discharge patient. jr8 Data interpreted: Pulse oximetry: on room air is 100 %. Interpretation: normal. Counseling: I had a detailed discussion with the patient and/or guardian regarding: the historical points, exam findings, and any diagnostic results supporting the discharge/admit diagnosis, the need for outpatient follow up, a dentist, to return to the emergency department if symptoms worsen or persist or if there are any questions or concerns that arise at home. 11:36 Patient medically screened. jr8 Administered Medications: No medications were administered Disposition: 10/28 06:54 Co-signature as Attending Physician, Deon Sinha MD I agree with the assessment and fran plan of care. Disposition Summary: 10/27/21 11:36 Discharge Ordered Location: Home jr8 Problem: new jr8 Symptoms: are unchanged jr8 Condition: Stable jr8 Diagnosis - Periapical abscess without sinus jr8 Followup: jr8 - With: Private Physician - When: 1 week - Reason: Recheck today's complaints, Continuance of care, Re-evaluation by your physician Discharge Instructions: - Discharge Summary Sheet jr8 - Dental Abscess jr8 - Dental Pain jr8 Forms: - Medication Reconciliation Form jr8 - Thank You Letter jr8 - Antibiotic Education jr8 - Prescription Opioid Use jr8 Prescriptions: - Flagyl 500 mg Oral Tablet - take 1 tablet by ORAL route every 8 hours for 10 days; 30 tablet; Refills: 0, jr8 Product Selection Permitted - levofloxacin 500 mg Oral Tablet - take 1 tablet by ORAL route once daily for 10 days; 10 tablet; Refills: 0, jr8 Product Selection Permitted - Ibuprofen 800 mg Oral Tablet - take 1 tablet by ORAL route every 12 hours As needed take with food; 20 tablet; jr8 Refills: 0, Product Selection Permitted - Tylenol-Codeine #3 300 mg-30 mg Oral - take 2 tablet by ORAL route every 8 hours As needed; 16 tablet; Refills: 0, jr8 Product Selection Permitted Signatures: Deon Sinha MD MD cha Roszak, Josh, PA PA jr8 Betty Kincaid, RN RN vg1
--- NOTE | 2021-10-27 11:37 | ER ---
Nurse's Notes [facility] Name: Tadeo Thakur Age: 35 yrs Sex: Male : 1985 Arrival Date: 10/27/2021 Time: 10:30 Bed Waiting Private MD: Diagnosis: Periapical abscess without sinus Presentation: 10/27 11:21 Chief complaint: Patient states: has been dealing with a tooth infection x 1 month, vg1 states just finished Clindamycin that was prescribed on 10/10. States fever for the past three days, headache, and left ear pain. Coronavirus screen: Vaccine status: Patient reports receiving the 1st dose of the Covid vaccine. Client denies travel out of the [place] in the last 14 days. Ebola Screen: Patient negative for fever greater than or equal to 101.5 degrees Fahrenheit, and additional compatible Ebola Virus Disease symptoms. Initial Sepsis Screen: Does the patient meet any 2 criteria? No. Patient's initial sepsis screen is negative. Does the patient have a suspected source of infection? No. Patient's initial sepsis screen is negative. Risk Assessment: Do you want to hurt yourself or someone else? Patient reports no desire to harm self or others. Onset of symptoms was September 27, 2021. 11:21 Method Of Arrival: Ambulatory vg1 11:21 Acuity: HAYDER 4 vg1 Triage Assessment: 11:23 General: Appears in no apparent distress. comfortable, Behavior is calm, cooperative. vg1 Pain: Complains of pain in mouth Pain currently is 5 out of 10 on a pain scale. EENT: Reports pain in lower left first molar. Historical: - Allergies: 11:23 PENICILLINS; vg1 - Home Meds: 11:23 Lisinopril Oral [Active]; Metformin Oral [Active]; Glipizide Oral [Active]; alogliptin vg1 oral [Active]; - PMHx: 11:23 Hypertensive disorder; Diabetes mellitus; vg1 - PSHx: 11:23 Appendectomy; Hernia Repair; Knee-Left; vg1 - Immunization history:: Client reports receiving the Micky \T\ Micky single-dose vaccine. - Social history:: Smoking status: Patient/guardian denies using tobacco, the patient reports quitting approximately 1 years ago. Screenin:58 Abuse screen: Denies threats or abuse. Nutritional screening: No deficits noted. vg1 Tuberculosis screening: No symptoms or risk factors identified. Fall Risk None identified. Assessment: 11:58 Reassessment: Patient appears in no apparent distress at this time. No changes from vg1 previously documented assessment. Patient and/or family updated on plan of care and expected duration. Pain level reassessed. Patient is alert, oriented x 3, equal unlabored respirations, skin warm/dry/pink. Vital Signs: 11:21 BP 167 / 93; Pulse 99; Resp 18; Temp 98.3; Pulse Ox 100% ; Weight 108.86 kg; Height 5 vg1 ft. 9 in. (175.26 cm); Pain 5/10; 11:21 Body Mass Index 35.44 (108.86 kg, 175.26 cm) vg1 ED Course: 10:30 Patient arrived in ED. am2 11:23 Triage completed. vg1 11:23 Arm band placed on. vg1 11:27 Matthias Mendez PA is PHCP. jr8 11:27 Deon Sinha MD is Attending Physician. 8 11:58 No provider procedures requiring assistance completed. Patient did not have IV access vg1 during this emergency room visit. Administered Medications: No medications were administered Outcome: 11:36 Discharge ordered by . jr8 11:58 Discharged to home ambulatory. vg1 11:58 Condition: stable 11:58 Discharge instructions given to patient, Instructed on discharge instructions, follow up and referral plans. medication usage, Demonstrated understanding of instructions, follow-up care, medications, Prescriptions given X 4. 11:59 Patient left the ED. vg1 Signatures: Matthias Mendez PA PA Michelle Castelan Victoria, RN RN vg1
[2021-10-27 12:06] VITALS: BP 167/93; TEMP 98.3; O2SAT 100
== END 2021-10-27 11:59 | disposition home or self-care (01) ==
LOC: ER 10:29
DX: K04.7 Periapical abscess without sinus (principal); E11.9 Type 2 diabetes mellitus without complications; I10 Essential (primary) hypertension; Z88.0 Allergy status to penicillin
CPT/HCPCS: 99282

== ENCOUNTER 2022-01-15 18:24 | Emergency (ER) | payer OTHER ==
--- OUTSIDE RECORDS SUMMARY | 2022-01-15 18:26 | XMS REPORT | Continuity of Care Document ---
:1985 Author Organization [facility] t Address Critical access hospital Elijah Cheng [address] [place] [address] Care Team Providers Name Role Phone Shree [...] 2-31 ity of 00:00: [place] 00 Medical [place] Penicill Propensi Active Unknown - 2019-11 Childhood Univers ins ty to See comments - unknown i ty of adverse 00:00: [place] reaction 00 Medical s [place] Social History Social Habit Start Date Stop Date Quantity Comments Source Sex Assigned At Uni versity [facility] Exposure to SARS-CoV-2 Not sure [facility] [place] (event) Medical [place] Smoking Status Start Date Stop Date Source Unknown if ever smoked Universit y of [facility] Medications Ordered Filled Start Stop Current Ordering Indication Dosage Frequency Signature Comments Components Source Medication Medication Date Date Medication? Clinician (SIG) Name Name indomethaci 2019-11 Yes [id number] 50mg Take 1 Univers n 50 mg 2-31 capsule by ity of capsule 00:00: mouth 3 (three) Medical times Branch daily with meals. chlorhexidi 2019-11 Yes [id number] 15mL Swish and Univers ne 0.12 % 2-31 spit out ity of mouthwash 00:00: 15 mL 2 (two) Medical times Branch daily. clindamycin 2019-11- No [id number] 300mg Take 1 Univers 300 mg 12-02 capsule by ity of capsule 00:00: 05:59 mouth 4 [place] 00 :00 (four) Medical times [place] daily for 10 days. Vital Signs Vital [...] [place] Body temperature 2020-11-21 15:56:00 37.17 Anni Univ ersity [facility] Respiratory rate 2020-11-21 15:56:00 16 /min Univ ersity of [facility] Body height 2020-11-21 15:56:00 175.3 cm Universi ty of [facility] Body weight 2020-11-21 15:56:00 108.863 kg [facility] [place] Medical [place] BMI 2020-11-21 15:56:00 35.44 kg/m2 [facility] [place] [facility] Oxygen saturation in 2020-11-21 15:56:00 99 /min University of Arterial blood by [facility] Pulse oximetry Branch Systolic blood 2020-11-21 15:56:00 [...] [place] Body temperature 2020-11-21 15:56:00 37.17 Anni Univ ersity [facility] Respiratory rate 2020-11-21 15:56:00 16 /min Univ ersity [facility] Body height 2020-11-21 15:56:00 175.3 cm [facility] [place] [facility] [place] Body weight 2020-11-21 15:56:00 108.863 kg [facility] [place] [facility] BMI 2020-11-21 15:56:00 35.44 kg/m2 Universi ty of [facility] Oxygen saturation in 2020-11-21 15:56:00 99 /min University of Arterial blood by [facility] Pulse oximetry Branch Procedures Procedure Date / Time Performed Performing Clinician Eulogio e NOTICE OF PRIVACY 2020-11-21 15:45:44 Doctor Unassigned, No Univ [facility] PRACTICES Name Medical Branch Encounters Start End Encounter Admission Attending Care Care Encounter Source Date/Time Date/Time Type Type Clinicians Facility Department ID 2020-11-21 2020-11-21 Emergency [facility] [id number] Univers 09:58:00 10:54:00 Myah Antunez [id number] sagar [facility] [id number] [facility] [id number] [facility] 084 Branch 2020-11-21 2020-11-21 Emergency [facility] [id number] 09:58:00 10:54:00 Myah Antunez [id number] [place] [id number] [place] [id number] 2020-11-21 2020-11-21 Emergency X [facility] ERT [id number] Univers 09:58:00 09:58:00 MYAH keith [facility] Results This patient has no known results.
[2022-01-15] MEDS ORDERED: ONDANSETRON 4 MG/2 ML VIAL ONE (19:14)
[2022-01-15] MEDS ORDERED: PANTOPRAZOLE 40 MG INJ ONE (19:14)
[2022-01-15] MEDS ORDERED: NA CHLORIDE 0.9% 1,000 ML ONE (19:15)
[2022-01-15 19:19] LABS: Absolute Lymphocytes (CBC) 2.9 K/uL (0.7-4.9); Hematocrit 42.8 % (39.6-49.0); Lymphocytes % 26.2 % (15.3-44.8); MPV 9.4 fL (7.6-11.3); RBC Red Blood Cell Count 4.67 M/uL (4.33-5.43)
[2022-01-15 19:25] LABS: Protime INR 0.98
[2022-01-15 21:37] LABS: Albumin 3.8 g/dL (3.4-5.0); Bilirubin Direct 0.1 mg/dL (0-0.2); Bilirubin Total 0.5 mg/dL (0.2-1.0); Magnesium 2.4 mg/dL (1.8-2.4); Potassium 3.8 mmol/L (3.5-5.1); Protein, Total 7.6 g/dL (6.4-8.2)
--- NOTE | 2022-01-15 22:19 | RAD REPORT ---
EXAM DESCRIPTION: RAD - Chest Single View - 01/15/2022 10:01 pm CLINICAL HISTORY: COUGH COMPARISON: <Comparisons> FINDINGS: Lines: None. Lungs: No evidence of edema or pneumonia. Pleural: No significant pleural effusions or pneumothorax. Cardiac: The heart size is within normal limits. Bones: No acute fractures. Other: IMPRESSION: No acute cardiopulmonary disease.
[2022-01-15] MEDS ORDERED: metroNIDAZOLE 500 MG TABLET ONE (23:22)
[2022-01-15] MEDS ORDERED: CIPROFLOXACIN HCL 500 MG TAB ONE (23:22)
--- NOTE | 2022-01-15 23:26 | EDPHYS ---
Physician Documentation [facility] Name: Tadeo Thakur Age: 36 yrs Sex: Male : 1985 Arrival Date: 01/15/2022 Time: 18:27 Bed 27 Private MD: ED Physician Gume Ge HPI: 01/15 19:05 This 36 yrs old Male presents to ER via Ambulatory with complaints of Vomiting. cp 19:05 Patient reports noticing blood in vomitus and after coughing today. cp 19:05 Onset: The symptoms/episode began/occurred today. cp 19:05 The patient presents to the emergency department with vomiting, that is intermittent, cp abdominal pain, of the left lower quadrant. Associated signs and symptoms: Pertinent positives: GI bleeding, Pertinent negatives: constipation, diarrhea, fever. Historical: - Allergies: 18:32 PENICILLINS; tw2 - Home Meds: 18:32 empagliflozin 25 mg oral tab 1 tab once daily [Active]; lisinopril 5 mg oral tab 1 tab tw2 once daily [Active]; benzonatate 100 mg oral cap 1 cap 3 times per day [Active]; alogliptin 25 mg oral tab 1 tab once daily [Active]; metformin 500 mg Oral tr24 2 tabs 2 times per day [Active]; - PMHx: 18:32 diabetes mellitus; Hypertensive disorder; tw2 - PSHx: 18:32 Appendectomy; hernia repair; Knee-Left; tw2 - Immunization history:: Client reports receiving the Micky \T\ Micky single-dose vaccine. - Social history:: Smoking status: Patient denies any tobacco usage or history of. ROS: 19:10 Eyes: Negative for injury, pain, redness, and discharge. cp 19:10 Constitutional: Negative for body aches, chills, fever, poor PO intake. 19:10 ENT: Negative for drainage from ear(s), ear pain, sore throat, difficulty swallowing, difficulty handling secretions. 19:10 Cardiovascular: Negative for chest pain, edema, palpitations. 19:10 Respiratory: Positive for cough, hemoptysis, Negative for shortness of breath, wheezing. 19:10 Abdomen/GI: Positive for abdominal pain, nausea, vomiting, hematemesis, Negative for diarrhea, constipation, black/tarry stool, rectal bleeding. 19:10 Back: Negative for pain at rest, pain with movement. 19:10 Neuro: Negative for altered mental status, headache, numbness, syncope, weakness. 19:10 All other systems are negative. Exam: 19:15 Head/Face: Normocephalic, atraumatic. cp 19:15 Constitutional: The patient appears in no acute distress, alert, awake, non-diaphoretic, non-toxic, well developed, well nourished. 19:15 Eyes: Periorbital structures: appear normal, Conjunctiva: normal, no exudate, no injection, Sclera: no appreciated abnormality, Lids and lashes: appear normal, bilaterally. 19:15 ENT: External ear(s): are unremarkable, Nose: is normal, Mouth: Lips: moist, Oral mucosa: moist, Posterior pharynx: Airway: no evidence of obstruction, patent. 19:15 Chest/axilla: Inspection: normal, Palpation: is normal, no crepitus, no tenderness. 19:15 Cardiovascular: Rate: tachycardic, Rhythm: regular, Edema: is not appreciated, JVD: is not appreciated. 19:15 Respiratory: the patient does not display signs of respiratory distress, Respirations: normal, no use of accessory muscles, no retractions, labored breathing, is not present, Breath sounds: are clear throughout, no decreased breath sounds, no stridor, no wheezing. 19:15 Abdomen/GI: Inspection: abdomen appears normal, Bowel sounds: active, all quadrants, Palpation: soft, in all quadrants, moderate abdominal tenderness, in the left lower quadrant, rebound tenderness, is not appreciated, involuntary guarding, is not appreciated. 19:15 Back: pain, is absent, ROM is normal. 19:15 Neuro: Orientation: to person, place \T\ time. Mentation: is normal, Motor: moves all fours, strength is normal, Sensation: is normal. Vital Signs: 18:29 BP 126 / 73; Pulse 113; Resp 18; Temp 97.9(TE); Pulse Ox 99% on R/A; Weight 113.4 kg tw2 (R); Height 5 ft. 10 in. (177.80 cm); Pain 7/10; 23:22 BP 123 / 78; Pulse 75; Resp 20; Pulse Ox 95% on R/A; lr4 18:29 Body Mass Index 35.87 (113.40 kg, 177.80 cm) tw2 MDM: 18:42 Patient medically screened. cp 19:30 Differential diagnosis: gastritis, appendicitis, diverticulitis, viral gastroenteritis, cp gastroenteritis, anemia, colitis, PUD. 23:25 Data reviewed: vital signs, nurses notes, lab test result(s), radiologic studies, CT cp scan, plain films. 23:25 Test interpretation: by ED physician or midlevel provider: plain radiologic studies. 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 Response to treatment: the patient's symptoms have markedly improved after treatment, and as a result, I will discharge patient. Special discussion: Based on the patient's Hx, exam, and Dx evaluation, there is no indication for emergent surgery or inpatient Tx. It is understood by the patient/guardian that if the Sx's persist or worsen they need to return immediately for re-evaluation. 01/15 18:59 Order name: Basic Metabolic Panel cp 01/15 18:59 Order name: CBC with Diff cp 01/15 18:59 Order name: Hepatic Function cp 01/15 18:59 Order name: Lipase cp 01/15 18:59 Order name: PT-INR; Complete Time: 21:20 cp 01/15 18:59 Order name: Ptt, Activated; Complete Time: 21:20 cp 01/15 18:59 Order name: Magnesium; Complete Time: 23:12 cp 01/15 19:00 Order name: Basic Metabolic Panel; Complete Time: 23:12 EDMS 01/15 23:12 Interpretation: Normal except: GLUC 176; GFR 74. cp 01/15 19:00 Order name: CBC with Automated Diff; Complete Time: 21:20 EDMS 01/15 23:12 Interpretation: Normal except: WBC 11.20. cp 01/15 19:00 Order name: Liver (Hepatic) Function; Complete Time: 23:12 EDMS 01/15 23:12 Interpretation: Normal except: AST 64; GLOB 3.8; A/G 1.0. cp 01/15 19:00 Order name: Lipase; Complete Time: 23:12 EDMS 01/15 21:21 Order name: XRAY Chest (1 view); Complete Time: 23:12 cp 01/15 23:13 Interpretation: Report reviewed. cp 01/15 21:22 Order name: CT Abd/Pelvis - IV Contrast Only cp 01/15 18:59 Order name: IV Saline Lock; Complete Time: 19:08 cp 01/15 18:59 Order name: Labs collected and sent; Complete Time: 19:08 cp 01/15 23:13 Order name: PO challenge; Complete Time: 23:21 cp Administered Medications: 19:10 Drug: ProTONIX (pantoprazole) 40 mg Route: IVP; Site: left antecubital; lr4 19:29 Follow up: Response: No adverse reaction; Nausea is decreased; Vomiting decreased lr4 19:17 Drug: NS 0.9% 1000 ml Route: IV; Rate: 1 bolus; Site: left antecubital; lr4 19:28 Follow up: IV Status: Infusion continued lr4 19:17 Drug: Zofran (Ondansetron) 4 mg Route: IVP; Site: left antecubital; lr4 19:28 Follow up: Response: No adverse reaction; Nausea is decreased lr4 23:21 Drug: Cipro (ciprofloxacin) 500 mg Route: PO; lr4 23:22 Follow up: Response: No adverse reaction lr4 23:21 Drug: metroNIDAZOLE 500 mg Route: PO; lr4 23:22 Follow up: Response: No adverse reaction lr4 Disposition Summary: 01/15/22 23:25 Discharge Ordered Location: Home cp Problem: new cp Symptoms: have improved cp Condition: Stable cp Diagnosis - Nausea with vomiting, unspecified cp - Mesenteric Panniculitis cp Followup: cp - With: Private Physician - When: GI physician as sheduled - Reason: Recheck today's complaints Discharge Instructions: - Discharge Summary Sheet cp - Abdominal Pain, Adult cp - Nausea and Vomiting, Adult cp Forms: - Medication Reconciliation Form cp - Thank You Letter cp - Antibiotic Education cp - Prescription Opioid Use cp - Work release form lr4 Prescriptions: - Protonix 40 mg Oral tablet,delayed release (DR/EC) - take 1 tablet by ORAL route 2 times per day; 60 tablet; Refills: 0, Product cp Selection Permitted - Zofran 4 mg Oral Tablet - take 1 tablet by ORAL route every 12 hours As needed; 20 tablet; Refills: 0, cp Product Selection Permitted - Cipro 500 mg Oral Tablet - take 1 tablet by ORAL route every 12 hours for 10 days; 20 tablet; Refills: 0, cp Product Selection Permitted - Metronidazole 500 mg Oral Tablet - take 1 tablet by ORAL route every 8 hours; 30 tablet; Refills: 0, Product cp Selection Permitted Signatures: Dispatcher [employer] EDMS Deon Sesay PA PA cp Wise, Tara RN RN tw2 Gwen Lechuga RN RN lr4 Corrections: (The following items were deleted from the chart) 01/16 21:16 01/15 18:10 This 36 yrs old Male presents to ER via Ambulatory with complaints of cp Vomiting. cp 01/16 21:01/15 18:10 The patient presents to the emergency department with vomiting, that is cp intermittent, abdominal pain, of the left lower quadrant, cp 01/16 21:16 01/15 18:10 Onset: The symptoms/episode began/occurred today, cp cp 01/16 21:16 01/15 18:10 Associated signs and symptoms: Pertinent positives: GI bleeding, Pertinent cp negatives: constipation, diarrhea, fever, cp 01/16 21:16 01/15 18:10 Patient reports noticing blood in vomitus and after coughing today. cp cp 01/16 21:18 01/15 18:15 Constitutional: Negative for body aches, chills, fever, poor PO intake, cp cp 01/16 21:01/15 18:15 Cardiovascular: Negative for chest pain, edema, palpitations, cp cp 01/16 21:18 01/15 18:15 Respiratory: Positive for cough, hemoptysis, Negative for shortness of cp breath, wheezing, cp 01/16 21:01/15 18:15 Abdomen/GI: Positive for abdominal pain, nausea, vomiting, hematemesis, cp Negative for diarrhea, constipation, black/tarry stool, rectal bleeding, cp 01/16 21:01/15 18:15 Eyes: Negative for injury, pain, redness, and discharge, cp cp 01/16 21:01/15 18:15 ENT: Negative for drainage from ear(s), ear pain, sore throat, difficulty cp swallowing, difficulty handling secretions, cp 01/16 21:18 01/15 18:15 Back: Negative for pain at rest, pain with movement, cp cp 01/16 21:01/15 18:15 Neuro: Negative for altered mental status, headache, numbness, syncope, cp weakness, cp 01/16 21:01/15 18:15 All other systems are negative, cp cp 01/16 21:01/15 18:20 Constitutional: The patient appears in no acute distress, alert, awake, cp non-diaphoretic, non-toxic, well developed, well nourished, cp 01/16 21:01/15 18:20 Head/Face: Normocephalic, atraumatic. cp cp 01/16 21:01/15 18:20 Eyes: Periorbital structures: appear normal, Conjunctiva: normal, no cp exudate, no injection, Sclera: no appreciated abnormality, Lids and lashes: appear normal, bilaterally, cp 01/16 21:01/15 18:20 ENT: External ear(s): are unremarkable, Nose: is normal, Mouth: Lips: cp moist, Oral mucosa: moist, Posterior pharynx: Airway: no evidence of obstruction, patent, cp 01/16 21:01/15 18:20 Chest/axilla: Inspection: normal, Palpation: is normal, no crepitus, no cp tenderness, cp 01/16 21:01/15 18:20 Cardiovascular: Rate: tachycardic, Rhythm: regular, Edema: is not cp appreciated, JVD: is not appreciated, cp 01/16 21:01/15 18:20 Respiratory: the patient does not display signs of respiratory distress, cp Respirations: normal, no use of accessory muscles, no retractions, labored breathing, is not present, Breath sounds: are clear throughout, no decreased breath sounds, no stridor, no wheezing, cp 01/16 21:01/15 18:20 Abdomen/GI: Inspection: abdomen appears normal, Bowel sounds: active, all cp quadrants, Palpation: soft, in all quadrants, moderate abdominal tenderness, in the left lower quadrant, rebound tenderness, is not appreciated, involuntary guarding, is not appreciated, cp 01/16 21:01/15 18:20 Back: pain, is absent, ROM is normal, cp cp 01/16 21:01/15 18:20 Neuro: Orientation: to person, place \T\ time. Mentation: is normal, Motor: cp moves all fours, strength is normal, Sensation: is normal, cp
--- NOTE | 2022-01-15 23:26 | ER ---
Nurse's Notes [facility] Name: Tadeo Thakur Age: 36 yrs Sex: Male : 1985 Arrival Date: 01/15/2022 Time: 18:27 Bed 27 Private MD: Diagnosis: Nausea with vomiting, unspecified;Mesenteric Panniculitis Presentation: 01/15 18:29 Chief complaint: Patient states: i have been coughing up blood. i am supposed to have a tw2 scope soon but the dr told me to come here if i coughed up any other blood. small amount. Coronavirus screen: At this time, the client does not indicate any symptoms associated with coronavirus-19. Ebola Screen: Patient denies travel to an Ebola-affected area in the 21 days before illness onset. Initial Sepsis Screen: Does the patient meet any 2 criteria? No. Patient's initial sepsis screen is negative. Does the patient have a suspected source of infection? No. Patient's initial sepsis screen is negative. Risk Assessment: Do you want to hurt yourself or someone else? Patient reports no desire to harm self or others. Onset of symptoms was January 15, 2022. 18:29 Method Of Arrival: Ambulatory tw2 18:29 Acuity: HAYDER 3 tw2 Triage Assessment: 18:32 General: Appears in no apparent distress. obese, well groomed, Behavior is calm, tw2 cooperative, appropriate for age. Pain: Complains of pain in left lower quadrant. GI: Reports lower abdominal pain. Historical: - Allergies: 18:32 PENICILLINS; tw2 - Home Meds: 18:32 empagliflozin 25 mg oral tab 1 tab once daily [Active]; lisinopril 5 mg oral tab 1 tab tw2 once daily [Active]; benzonatate 100 mg oral cap 1 cap 3 times per day [Active]; alogliptin 25 mg oral tab 1 tab once daily [Active]; metformin 500 mg Oral tr24 2 tabs 2 times per day [Active]; - PMHx: 18:32 diabetes mellitus; Hypertensive disorder; tw2 - PSHx: 18:32 Appendectomy; hernia repair; Knee-Left; tw2 - Immunization history:: Client reports receiving the Micky \T\ Micky single-dose vaccine. - Social history:: Smoking status: Patient denies any tobacco usage or history of. Screenin:36 Abuse screen: Denies threats or abuse. Nutritional screening: No deficits noted. tw2 Tuberculosis screening: No symptoms or risk factors identified. Fall Risk None identified. Assessment: 18:40 General: Appears in no apparent distress. comfortable, obese, Behavior is calm, lr4 cooperative. Pain: Complains of pain in abdomen Pain currently is 7 out of 10 on a pain scale. Quality of pain is described as aching. Neuro: No deficits noted. Cardiovascular: No deficits noted. Respiratory: No deficits noted. GI: Abdomen is round distended, Reports lower abdominal pain, nausea, vomiting, pt reports hematemesis, small amount, pt states this has been going on for months and has an appt on 01/20/22 for a scope,. 23:23 Reassessment: Patient states feeling better. Patient states symptoms have improved. Pt lr4 departed ed ambulatory with all personal effects, pt in nad, vss, resp even an unlabored. Vital Signs: 18:29 BP 126 / 73; Pulse 113; Resp 18; Temp 97.9(TE); Pulse Ox 99% on R/A; Weight 113.4 kg tw2 (R); Height 5 ft. 10 in. (177.80 cm); Pain 7/10; 23:22 BP 123 / 78; Pulse 75; Resp 20; Pulse Ox 95% on R/A; lr4 18:29 Body Mass Index 35.87 (113.40 kg, 177.80 cm) tw2 ED Course: 18:27 Patient arrived in ED. as 18:32 Triage completed. tw2 18:35 Arm band placed on. tw2 18:36 Gwen Lechuga, PARMJIT is Primary Nurse. lr4 18:36 Bed in low position. Call light in reach. tw2 18:37 Deon Sesay PA is PHCP. cp 18:38 Gume Ge MD is Attending Physician. cp 18:43 No provider procedures requiring assistance completed. lr4 19:08 Basic Metabolic Panel Sent. lr4 19:08 CBC with Diff Sent. lr4 19:08 Hepatic Function Sent. lr4 19:08 Lipase Sent. lr4 22:01 XRAY Chest (1 view) In Process Unspecified. EDMS 22:16 CT Abd/Pelvis - IV Contrast Only In Process Unspecified. EDMS 23:23 IV discontinued. lr4 Administered Medications: 19:10 Drug: ProTONIX (pantoprazole) 40 mg Route: IVP; Site: left antecubital; lr4 19:29 Follow up: Response: No adverse reaction; Nausea is decreased; Vomiting decreased lr4 19:17 Drug: NS 0.9% 1000 ml Route: IV; Rate: 1 bolus; Site: left antecubital; lr4 19:28 Follow up: IV Status: Infusion continued lr4 19:17 Drug: Zofran (Ondansetron) 4 mg Route: IVP; Site: left antecubital; lr4 19:28 Follow up: Response: No adverse reaction; Nausea is decreased lr4 23:21 Drug: Cipro (ciprofloxacin) 500 mg Route: PO; lr4 23:22 Follow up: Response: No adverse reaction lr4 23:21 Drug: metroNIDAZOLE 500 mg Route: PO; lr4 23:22 Follow up: Response: No adverse reaction lr4 Outcome: 18:43 Condition: stable lr4 23:23 Discharged to home ambulatory. lr4 23:24 Discharge instructions given to patient. lr4 23:25 Discharge ordered by . irineo 23:43 Patient left the ED. ss7 Signatures: Dispatcher [employer] EDMS Chayo Saleem Corey, PA PA cp Wise, Tara, RN RN tw2 Najma Mittal RN RN ss7 Gwen Lechuga RN RN lr4
[2022-01-16 01:49] VITALS: TEMP 97.9
[2022-01-16 01:50] VITALS: BP 123/78; O2SAT 95
--- NOTE | 2022-01-16 10:57 | RAD REPORT ---
EXAM DESCRIPTION: CT - Abdomen Pelvis W Contrast - 01/16/2022 6:30 am CLINICAL HISTORY: Abdominal pain. COMPARISON: None. TECHNIQUE: Axial CT imaging of the abdomen and pelvis performed with intravenous contrast. Reformatt ed coronal and sagittal images reviewed. A dose reduction technique was utilized with automated exposure control according to patient size. FINDINGS: Clear lung bases. Heart is normal in size. Liver is enlarged to greater than 21 cm. Moderate decreased attenuation due to fatty infiltration. No mass or biliary dilatation. Unremarkable gallbladder. Normal spleen, pancreas, adrenal glands and ki dneys. Aorta and inferior vena cava are normal in caliber. Enlarged precaval lymph node, 3.1 x 1.3 x 2.2 cm. Mesenteric vessels appear normal. Normal stomach. Small bowel loops appear normal. No visualized appendix. Mild diverticulosis througho ut the colon without diverticulitis. No ascites or free air. There are scattered shotty mesenteric ly mph nodes. Slight right mesenteric edema. Ventral abdominal hernia mesh noted. Unremarkable bladder. Normal prostate. No free fluid or lymphadenopathy within the pelvis. Unremarkab le bones. Normal soft tissues. IMPRESSION: 1. Slight mesenteric edema may represent mild mesenteric panniculitis. 2. Hepatomegaly with moderate fatty liver infiltration. 3. Mild diffuse colonic diverticulosis without diverticulitis. 4. Minimal precaval adenopathy. Electronically signed by: Ceci Silva DO 01/15/2022 10:47 PM [employer] SUPERVISOR Due to temporary technical issues with the PACS/Fluency reporting system, reports are being signed by the in house radiologist without review as a courtesy to ensure prompt reporting. The interpreting r adiologist is fully responsible for the content of the report.
== END 2022-01-15 23:43 | disposition home or self-care (01) ==
LOC: ER 18:24
DX: K65.4 Sclerosing mesenteritis (principal); I10 Essential (primary) hypertension; E11.9 Type 2 diabetes mellitus without complications; Z88.0 Allergy status to penicillin
CPT/HCPCS: 85025; 80048; 36415; 83735; 85610; 80076; 85730; 83690; 74177; 71045; 96375; 96374; 99283; Q9967; C9113; J7030; J2405

== ENCOUNTER 2022-06-17 18:03 | Emergency (ER) | payer OTHER ==
--- NOTE | 2022-06-17 20:10 | RAD REPORT ---
EXAM DESCRIPTION: RAD - Chest Single View - 06/17/2022 7:35 pm CLINICAL HISTORY: CHEST PAIN Chest pain. COMPARISON: Chest Single View dated 01/15/2022; Chest Single View dated 01/12/2021 FINDINGS: Portable technique limits examination quality. The lungs are grossly clear. The heart is normal in size. No displaced fractures. IMPRESSION: No acute intrathoracic process suspected.
[2022-06-17] MEDS ORDERED: HYDROCODONE/CHLORPHEN 5 ML/OSYR ONE (20:34)
[2022-06-17] MEDS ORDERED: NA CHLORIDE 0.9% 1,000 ML ONE ×3 (20:34→23:23)
[2022-06-17 20:35] LABS: Absolute Lymphocytes (CBC) 2.5 K/uL (0.7-4.9); Hematocrit 42.5 % (39.6-49.0); Lymphocytes % 21.8 % (15.3-44.8); MCV 88.1 fL (80-100); MPV 9.9 fL (7.6-11.3); RBC Red Blood Cell Count 4.82 M/uL (4.33-5.43)
[2022-06-17 20:41] LABS: Protime INR 1.03
[2022-06-17 21:10] LABS: Albumin 3.9 g/dL (3.4-5.0); Bilirubin Direct 0.3 mg/dL (0-0.2); Bilirubin Total 0.9 mg/dL (0.2-1.0); Protein, Total 7.6 g/dL (6.4-8.2); Troponin High Sensitivity 3.8 pg/mL (<58.9)
[2022-06-17 21:14] LABS: Magnesium 2.2 mg/dL (1.8-2.4); Potassium 3.7 mmol/L (3.5-5.1)
[2022-06-17] MEDS ORDERED: INSULIN -REGULAR HUMAN 50 UNIT/0.5 ML ML ONE (22:05)
[2022-06-18] MEDS ORDERED: INSULIN -REGULAR HUMAN 50 UNIT/0.5 ML ML ONE (00:22)
--- NOTE | 2022-06-18 01:23 | ER ---
Nurse's Notes [facility] Name: Tadeo Thakur Age: 36 yrs Sex: Male : 1985 Arrival Date: 06/17/2022 Time: 18:05 Bed 12 Private MD: Diagnosis: Diabetes mellitus due to underlying condition with hyperglycemia;SARS-associated coronavirus as the cause of diseases classified elsewhere Presentation: 06/17 18:25 Chief complaint: Patient states: THINKS HE HAS COVID, REPORTS FEVER, CHILLS, CHEST bh1 CONGESTION, LIGHTHEADED SINCE LAST NIGHT. Coronavirus screen: Vaccine status: Patient reports receiving the 1st dose of the Covid vaccine. chills, congestion, cough unrelated to allergies, difficulty breathing, fatigue, fever, headache. Ebola Screen: Patient negative for fever greater than or equal to 101.5 degrees Fahrenheit, and additional compatible Ebola Virus Disease symptoms. Initial Sepsis Screen: Does the patient meet any 2 criteria? No. Patient's initial sepsis screen is negative. Does the patient have a suspected source of infection? No. Patient's initial sepsis screen is negative. Risk Assessment: Do you want to hurt yourself or someone else? Patient reports no desire to harm self or others. Onset of symptoms was June 16, 2022. 18:25 Method Of Arrival: Ambulatory [facility] 18:25 Acuity: HAYDER 4 [facility] 18:52 Acuity: HAYDER 3 iw Triage Assessment: 18:27 General: Appears in no apparent distress. ill, Behavior is calm, cooperative, bh1 appropriate for age. Pain: Complains of pain in anterior aspect of right upper chest, anterior aspect of left upper chest and mid-sternal area. Cardiovascular: No deficits noted. Historical: - Allergies: 18:27 PENICILLINS; [facility] - Home Meds: 18:27 metformin 500 mg Oral tr24 2 tabs 2 times per day [Active]; 1 - PMHx: 18:27 diabetes mellitus; Hypertensive disorder; PTSD; 1 - PSHx: 18:27 Appendectomy; hernia repair; Knee-Left; 1 - Immunization history:: Adult Immunizations up to date. - Social history:: Smoking status: Patient denies any tobacco usage or history of. Screenin:36 Abuse screen: Denies threats or abuse. Nutritional screening: No deficits noted. bb Tuberculosis screening: No symptoms or risk factors identified. Fall Risk None identified. Assessment: 20:36 General: Appears in no apparent distress. Behavior is calm, cooperative. Pain: bb Complains of pain in chest Pain does not radiate. Pain began suddenly. Neuro: Level of Consciousness is awake, alert, obeys commands, Oriented to person, place, time, situation. Cardiovascular: Capillary refill < 3 seconds Patient's skin is warm and dry. Respiratory: Respiratory effort is even, unlabored, Respiratory pattern is regular. Derm: Skin is pink, warm \\T\\ dry. Musculoskeletal: Circulation, motion, and sensation intact. 21:30 Reassessment: Patient is alert, oriented x 3, equal unlabored respirations, skin bb warm/dry/pink. awaiting diagnostic results. 23:00 Reassessment: pt sleeping, eyes closed, resp unlabored, IV site intact, patent with bb fluids infusing. 06/18 01:46 Reassessment: Patient is alert, oriented x 3, equal unlabored respirations, skin bb warm/dry/pink. verbalized understanding of and agrees to plan of care discharge instructions given pt ambulated with steady gait to exit. Vital Signs: 06/17 18:25 BP 150 / 79; Pulse 122; Resp 20; Temp 99.7(O); Pulse Ox 97% on R/A; Weight 112.49 kg; 1 Height 5 ft. 9 in. (175.26 cm); Pain 0/10; 22:29 BP 110 / 51; Pulse 106; Resp 22; Temp 99.5(O); Pulse Ox 98% on R/A; wm 06/18 01:47 BP 122 / 59; Pulse 96; Resp 20 S; Temp 99.4(O); Pulse Ox 95% on R/A; bb 06/17 18:25 Body Mass Index 36.62 (112.49 kg, 175.26 cm) [facility] ED Course: 06/17 18:05 Patient arrived in ED. as 18:27 Triage completed. [facility] 18:27 Arm band placed on right wrist. [facility] 18:30 Deon Sesay PA is PHCP. cp 18:30 Deon Sinha MD is Attending Physician. cp 18:55 Strep Sent. [facility] 18:55 Flu Sent. [facility] 18:55 COVID-19 SARS RT PCR (Document "Date of Onset" if Symptomatic) Sent. [facility] 19:37 XRAY Chest (1 view) In Process Unspecified. EDMS 19:50 Gume Ge MD is Attending Physician. 20:23 Throat Culture Sent. 1 20:29 Initial lab(s) drawn, by nd, sent to lab. Inserted saline lock: 20 gauge in left wm antecubital area, using aseptic technique. Blood collected. 20:30 Basic Metabolic Panel Sent. 20:30 CBC with Diff Sent. 20:30 D-Dimer Sent. 20:30 LFT's Sent. 20:30 Magnesium Sent. 20:30 PT-INR Sent. 20:30 Troponin HS Sent. 20:34 Lactate Sent. 1 20:34 Basic Metabolic Panel Sent. [facility] 20:34 CBC with Diff Sent. 1 20:34 D-Dimer Sent. 1 20:34 LFT's Sent. 1 20:34 Magnesium Sent. [facility] 20:34 PT-INR Sent. [facility] 20:35 Keena Terrazas, RN is Primary Nurse. 20:35 Troponin HS Sent. 1 20:36 Patient has correct armband on for positive identification. bb 20:36 Patient maintains SpO2 saturation greater than 95% on room air. 20:40 EKG done, by ED staff. 20:41 Bed in low position. Side rails up X2. Warm blanket given. Client placed on continuous cardiac and pulse oximetry monitoring. NIBP monitoring applied. satellite project site monitor on. 20:41 Lactate Sent. 20:42 Basic Metabolic Panel Sent. 20:42 D-Dimer Sent. 20:42 LFT's Sent. 20:42 Magnesium Sent. 20:43 Call light in reach. Lights dimmed. 06/18 01:50 No provider procedures requiring assistance completed. IV discontinued, intact, bb bleeding controlled, No redness/swelling at site. Pressure dressing applied. Administered Medications: 06/17 20:29 Drug: NS 0.9% 1000 ml Route: IV; Rate: 1 bolus; Site: left forearm; [facility] 21:30 Follow up: IV Status: Completed infusion; IV Intake: 950ml 23:22 Follow up: IV Status: Infusion continued; IV Intake: 1000ml [facility] 20:29 Drug: Tussionex Pennkinetic ER (chlorpheniramine-hydrocodone) Suspension 5 ml Route: PO;1 23:22 Follow up: Response: No adverse reaction [facility] 22:05 Drug: NS 0.9% 1000 ml Route: IV; Rate: 1 bolus; Site: left antecubital; 23:21 Follow up: IV Status: Infusion continued; IV Intake: 1000ml [facility] 22:05 Drug: Insulin Regular Human 10 units {Co-Signature: (Keena Terrazas RN).} Route: bh1 IVP; Site: left antecubital; 23:23 Follow up: Response: No adverse reaction [facility] 23:21 Drug: NS 0.9% 1000 ml Route: IV; Rate: 1 bolus; Site: left antecubital; [facility] 06/18 00:30 Follow up: IV Status: Completed infusion; IV Intake: 950ml 06/17 23:52 CANCELLED (Physician Discretion): NS 0.9% 1000 ml IV at 1 bolus Per protocol; 1000 mL cp bolus 06/18 00:20 Drug: Insulin Regular Human 10 units {Co-Signature: [facility] (Joana Curtis RN).} Route: bb IVP; Site: left antecubital; 01:48 Follow up: Response: Blood sugar is lowered 01:49 Follow up: Response: Blood sugar is lowered 01:48 Drug: Tylenol 1000 mg Route: PO; 01:48 Follow up: Response: Medication administered at discharge. bb Medication: 06/17 20:36 VIS not applicable for this client. bb Intake: 21:30 IV: 950ml; Total: 950ml. 23:21 IV: 1000ml; Total: 1950ml. [facility] 23:22 IV: 1000ml; Total: 2950ml. [facility] 06/18 00:30 IV: 950ml; Total: 3900ml. bb Outcome: 01:23 Discharge ordered by MD. cp 01:50 Discharged to home ambulatory. bb 01:50 Condition: stable 01:50 Discharge instructions given to patient, Instructed on discharge instructions, follow up and referral plans. medication usage, Demonstrated understanding of instructions, follow-up care, medications, Prescriptions given X 2. 01:50 Patient left the ED. bb Signatures: Dispatcher [employer] EDTX Chayo Saleem Brenda, RN RN bb Williams, Irene, RN RN iw Deon Sesay PA PA cp Jones, Blanca wm Curtis, Joana, RN RN [facility] Keena Curtis RN [facility] Corrections: (The following items were deleted from the chart) 06/17 18: 18:27 Home Meds: alogliptin 25 mg Oral tab 1 tab once daily; [place] [id number] 18: Home Meds: benzonatate 100 mg Oral cap 1 cap 3 times per day; [place] [id number] 18: Home Meds: empagliflozin 25 mg Oral tab 1 tab once daily; [place] [id number] 18: Home Meds: lisinopril 5 mg Oral tab 1 tab once daily; [place] [id number]
--- NOTE | 2022-06-18 01:23 | EDPHYS ---
Physician Documentation [facility] Name: Tadeo Thakur Age: 36 yrs Sex: Male : 1985 Arrival Date: 06/17/2022 Time: 18:05 Bed 12 Private MD: ED Physician Gume Ge HPI: 06/17 19:00 This 36 yrs old Male presents to ER via Ambulatory with complaints of Chest Pain, Fever.cp 19:00 The patient reports fever, not measured (subjective). cp 19:00 Onset: The symptoms/episode began/occurred last night. cp 19:00 Associated signs and symptoms: Pertinent positives: cough, headache, sore throat, chest cp pain, Pertinent negatives: abdominal pain, diarrhea, vomiting. 19:00 Severity of symptoms: in the emergency department the symptoms are unchanged despite cp home interventions. Historical: - Allergies: 18:27 PENICILLINS; bh1 - Home Meds: 18:27 metformin 500 mg Oral tr24 2 tabs 2 times per day [Active]; bh1 - PMHx: 18:27 diabetes mellitus; Hypertensive disorder; PTSD; 1 - PSHx: 18:27 Appendectomy; hernia repair; Knee-Left; 1 - Immunization history:: Adult Immunizations up to date. - Social history:: Smoking status: Patient denies any tobacco usage or history of. ROS: 19:05 Constitutional: Positive for body aches, Negative for fever, poor PO intake. cp 19:05 Eyes: Negative for injury, pain, redness, and discharge. cp 19:05 ENT: Positive for sore throat, Negative for drainage from ear(s), ear pain, difficulty swallowing, difficulty handling secretions. 19:05 Neck: Negative for pain with movement, pain at rest, stiffness. 19:05 Cardiovascular: Positive for chest pain, Negative for edema, palpitations. 19:05 Respiratory: Positive for cough, with no reported sputum, Negative for shortness of breath, wheezing. 19:05 Abdomen/GI: Negative for abdominal pain, vomiting, diarrhea, constipation. 19:05 Neuro: Positive for headache, lightheaded, Negative for altered mental status, syncope, weakness. 19:05 All other systems are negative. Exam: 19:10 Constitutional: The patient appears in no acute distress, alert, awake, cp non-diaphoretic, non-toxic, well developed, well nourished, obviously ill. 19:10 Head/Face: Normocephalic, atraumatic. cp 19:10 Eyes: Periorbital structures: appear normal, Pupils: equal, round, and reactive to light and accomodation, Extraocular movements: intact throughout, Conjunctiva: normal, no exudate, no injection, Sclera: no appreciated abnormality, Lids and lashes: appear normal, bilaterally. 19:10 ENT: External ear(s): are unremarkable, Ear canal(s): are normal, clear, TM's: dullness, bilaterally, Nose: is normal, Mouth: Lips: moist, Oral mucosa: pink and intact, moist, Posterior pharynx: Airway: no evidence of obstruction, patent, Tonsils: with erythema, no enlargement, no exudate, swelling, is not appreciated, erythema, that is mild, exudate, is not appreciated. 19:10 Neck: ROM/movement: is normal, is supple, without pain, no range of motions limitations, no meningismus. 19:10 Chest/axilla: Inspection: normal, Palpation: is normal, no crepitus, no tenderness. 19:10 Cardiovascular: Rate: tachycardic, Rhythm: regular, Edema: is not appreciated, JVD: is not appreciated. 19:10 Respiratory: the patient does not display signs of respiratory distress, Respirations: normal, no use of accessory muscles, no retractions, labored breathing, is not present, Breath sounds: stridor, is not appreciated, + upper airway congestion. wheezing: is not appreciated. 19:10 Abdomen/GI: Inspection: abdomen appears normal, Palpation: abdomen is soft and non-tender, in all quadrants. 19:10 Skin: cellulitis, is not appreciated, no rash present. 19:10 Neuro: Orientation: to person, place \\T\\ time. Mentation: is normal, Cerebellar function: is grossly normal, Motor: moves all fours, strength is normal, Sensation: is normal. 20:37 ECG was reviewed by the Attending Physician. cp Vital Signs: 18:25 BP 150 / 79; Pulse 122; Resp 20; Temp 99.7(O); Pulse Ox 97% on R/A; Weight 112.49 kg; bh1 Height 5 ft. 9 in. (175.26 cm); Pain 0/10; 22:29 BP 110 / 51; Pulse 106; Resp 22; Temp 99.5(O); Pulse Ox 98% on R/A; wm 06/18 01:47 BP 122 / 59; Pulse 96; Resp 20 S; Temp 99.4(O); Pulse Ox 95% on R/A; bb 06/17 18:25 Body Mass Index 36.62 (112.49 kg, 175.26 cm) 1 MDM: 06/17 20:38 Patient medically screened. 06/18 01:22 Data reviewed: vital signs, nurses notes, lab test result(s), EKG, radiologic studies, cp plain films. 01:22 Differential diagnosis: viral Infection, bacterial infection, bronchitis, pneumonia cp UTI, gastroenteritis, meningitis. Test interpretation: by ED physician or midlevel provider: ECG, plain radiologic studies. Counseling: I had a detailed discussion with the patient and/or guardian regarding: the historical points, exam findings, and any diagnostic results supporting the discharge/admit diagnosis, lab results, radiology results, the need for outpatient follow up, a family practitioner, to return to the emergency department if symptoms worsen or persist or if there are any questions or concerns that arise at home. Response to treatment: the patient's symptoms have markedly improved after treatment, and as a result, I will discharge patient. ED course: VSS. Patient appears non-toxic and no signs of respiratory distress. Will discharge to home for continued monitoring. 06/17 18:31 Order name: COVID-19 SARS RT PCR (Document "Date of Onset" if Symptomatic); Complete [facility] Time: 21:45 06/17 21:45 Interpretation: Abnormal: SARSCOV2 RT PCR POSITIVE. 06/17 18:31 Order name: Flu; Complete Time: 21:45 [facility] 06/17 21:48 Interpretation: Reviewed. 06/17 18:31 Order name: Strep; Complete Time: 21:45 [facility] 06/17 18:34 Order name: Basic Metabolic Panel; Complete Time: 21:45 06/17 21:47 Interpretation: Normal except: NA 130; CL 93; ANION GAP 15.7; GLUC 444; GFR 81. 06/17 18:34 Order name: CBC with Diff; Complete Time: 21:45 06/17 21:47 Interpretation: Normal except: WBC 11.7; MCV 88.1; NEUT A 8.2. cp 06/17 18:34 Order name: D-Dimer; Complete Time: 21:45 cp 06/17 18:34 Order name: LFT's; Complete Time: 21:45 cp 06/17 21:47 Interpretation: Normal except: BILID 0.3; GLOB 3.7. cp 06/17 18:34 Order name: Magnesium; Complete Time: 21:45 cp 06/17 18:34 Order name: PT-INR; Complete Time: 21:45 cp 06/17 18:34 Order name: Troponin HS; Complete Time: 21:45 cp 06/17 18:34 Order name: Lactate; Complete Time: 21:45 cp 06/17 19:06 Order name: Throat Culture EDDE 06/18 01:42 Order name: Glucose, Ancillary Testing EDDE 06/18 01:42 Order name: Glucose, Ancillary Testing EDDE 06/17 18:34 Order name: XRAY Chest (1 view); Complete Time: 21:45 06/17 21:48 Interpretation: Report review. 06/17 18:34 Order name: EKG; Complete Time: 18:37 cp 06/17 18:34 Order name: Cardiac monitoring; Complete Time: 20:34 cp 06/17 18:34 Order name: EKG - Nurse/Tech; Complete Time: 20:34 cp 06/17 18:34 Order name: IV Saline Lock; Complete Time: 20:30 cp 06/17 18:34 Order name: Labs collected and sent; Complete Time: 20:30 cp 06/17 18:34 Order name: O2 Per Protocol; Complete Time: 20:34 06/17 18:34 Order name: O2 Sat Monitoring; Complete Time: 20:34 cp 06/17 23:27 Order name: Accucheck Blood Glucose; Complete Time: 23:50 cp 06/18 00:56 Order name: Accucheck Blood Glucose; Complete Time: 01:20 cp EC/27 20:37 Rate is 102 beats/min. Rhythm is regular. WV interval is normal. QRS interval is cp normal. QT interval is prolonged at 416 msec. T waves are Inverted in lead aVR. Interpreted by me. Reviewed by me. Administered Medications: 20:29 Drug: NS 0.9% 1000 ml Route: IV; Rate: 1 bolus; Site: left forearm; [facility] 21:30 Follow up: IV Status: Completed infusion; IV Intake: 950ml 23:22 Follow up: IV Status: Infusion continued; IV Intake: 1000ml [facility] 20:29 Drug: Tussionex Pennkinetic ER (chlorpheniramine-hydrocodone) Suspension 5 ml Route: PO;1 23:22 Follow up: Response: No adverse reaction [facility] 22:05 Drug: NS 0.9% 1000 ml Route: IV; Rate: 1 bolus; Site: left antecubital; 23:21 Follow up: IV Status: Infusion continued; IV Intake: 1000ml [facility] 22:05 Drug: Insulin Regular Human 10 units {Co-Signature: (Keena Terrazas RN).} Route: [facility] IVP; Site: left antecubital; 23:23 Follow up: Response: No adverse reaction [facility] 23:21 Drug: NS 0.9% 1000 ml Route: IV; Rate: 1 bolus; Site: left antecubital; [facility] 06/18 00:30 Follow up: IV Status: Completed infusion; IV Intake: 950ml 06/17 23:52 CANCELLED (Physician Discretion): NS 0.9% 1000 ml IV at 1 bolus Per protocol; 1000 mL cp bolus 06/18 00:20 Drug: Insulin Regular Human 10 units {Co-Signature: [facility] (Joana Curtis RN).} Route: IVP; Site: left antecubital; 01:48 Follow up: Response: Blood sugar is lowered 01:49 Follow up: Response: Blood sugar is lowered 01:48 Drug: Tylenol 1000 mg Route: PO; 01:48 Follow up: Response: Medication administered at discharge. Disposition Summary: 06/18/22 01:23 Discharge Ordered Location: Home cp Problem: new cp Symptoms: have improved cp Condition: Stable cp Diagnosis - Diabetes mellitus due to underlying condition with hyperglycemia cp - SARS-associated coronavirus as the cause of diseases classified elsewhere cp Followup: cp - With: Private Physician - When: 2 - 3 days - Reason: Recheck today's complaints Discharge Instructions: - Discharge Summary Sheet cp - Blood Glucose Monitoring, Adult cp - Diabetes Mellitus and Nutrition, Adult cp - Aspirin and Your Heart cp - Form - Excuse from Work, School, or Physical Activity cp - COVID-19 cp - Things to Know about the COVID-19 Pandemic - [facility] cp - 10 Things You Can Do to Manage Your COVID-19 Symptoms at Home - [facility] cp - COVID-19: Quarantine vs. Isolation - [facility] cp - Prevent the Spread of COVID-19 if You Are Sick - [facility] cp Forms: - Medication Reconciliation Form cp - Thank You Letter cp - Antibiotic Education cp - Prescription Opioid Use cp - Work release form [facility] Prescriptions: - Bromfed DM 2-30-10 mg/5 mL Oral syrup - take 10 milliliter by ORAL route every 6 hours; 180 milliliter; Refills: 0, cp Product Selection Permitted - Ibuprofen 800 mg Oral Tablet - take 1 tablet by ORAL route every 8 hours As needed take with food; 30 tablet; cp Refills: 0, Product Selection Permitted Signatures: Dispatcher [employer] Keena Pulido RN RN bb Deon Sesay PA PA cp Hicks, Barbara, RN RN [facility] Keena Curtis RN [facility] Corrections: (The following items were deleted from the chart) 06/17 18:28 18:27 Home Meds: alogliptin 25 mg Oral tab 1 tab once daily; [place] [id number] 18:28 18:27 Home Meds: benzonatate 100 mg Oral cap 1 cap 3 times per day; [place] [id number] 18: 18:27 Home Meds: empagliflozin 25 mg Oral tab 1 tab once daily; [place] [id number] 18:28 18:27 Home Meds: lisinopril 5 mg Oral tab 1 tab once daily; [place] [id number] 23:52 23:47 NS 0.9% 1000 ml IV at 1 bolus Per protocol; 1000 mL bolus ordered. cp cp
[2022-06-18] MEDS ORDERED: ACETAMINOPHEN 500 MG TAB ONE (01:49)
[2022-06-18 03:58] VITALS: BP 122/59; TEMP 99.4; O2SAT 95
--- NOTE | 2022-06-18 13:04 | EKG ---
Test Date: 2022-06-17 Test Time: 20:33:25 [place] Officer: MEASUREMENT RESULTS: Intervals: Rate: 102 CO: 136 QRSD: 96 QT: 416 QTc: 542 [place]: P: 40 CO: 136 QRS: 94 T: 45 INTERPRETIVE STATEMENTS: Sinus tachycardia Rightward axis Prolonged QT Abnormal ECG Compared to ECG 01/12/2021 16:41:49 Prolonged QT interval now present Sinus rhythm no longer present Electronically Signed On 06-18-22 13:03:41 CDT by Gab Pacheco
== END 2022-06-18 01:50 | disposition home or self-care (01) ==
LOC: ER 18:03
DX: U07.1 COVID-19 (principal); E11.65 Type 2 diabetes mellitus with hyperglycemia; I10 Essential (primary) hypertension
CPT/HCPCS: 96361; 93005; 87070; 85025; 80048; 36415; 83735; 85610; 82947 ×2; 85379; 80076; 87081; 83605; 84484; 87804 ×2; 71045; 96374; 99285; U0003; J1815 ×2; J7030 ×3

== ENCOUNTER 2023-09-23 17:24 | Emergency (ER) | payer OTHER ==
--- OUTSIDE RECORDS SUMMARY | 2023-09-23 17:27 | XMS REPORT | Continuity of Care Document ---
:1985 Author Organization [facility] t Address [address] [place] [address] [address] [place] [address] Care Team Providers Name Role Phone Myah Crowell NP Attending Clinician MYAH CROWELL Attending Clinician Unavailable Problems Condition Condition Condition Status Onset Resolution Last Treating Co mments Source Name Details Category Date Date Treatment Clinician Date No known No known Disease Unive rs active active ity of problems problems [facility] Allergies, Adverse Reactions, Alerts Allergy Allergy Status Severity Reaction(s) Onset Inactive Treating Comm ents Source Name Type Date Date Clinician PENICILL Drug Active Unknown-Cmnt 2019-11 Un naida INS Class 2-31 ity of 00:00: [place] 00 [facility] Penicill Propensi Active Unknown - 2019-11 Childhood Univers ins ty to See comments - unknown i ty of adverse 00:00: [place] reaction 00 Medical [facility] [place] Social History Social Habit Start Date Stop Date Quantity Comments Source Sex Assigned At Uni versity [facility] Exposure to SARS-CoV-2 Not sure [facility] [place] (event) Medical [place] Smoking Status Start Date Stop Date Source Unknown if ever smoked [facility] Medications Ordered Filled Start Stop Current Ordering Indication Dosage Frequency Signature Comments Components Source Medication Medication Date Date Medication? Clinician (SIG) Name Name indomethaci 2019-11 Yes [id number] 50mg Take 1 Univers n 50 mg 2-31 capsule by ity of capsule 00:00: mouth 3 (three) Medical times Branch daily with meals. chlorhexidi 2019-11 Yes [id number] 15mL Swish and Univers ne 0.12 % 2-31 spit out ity of mouthwash 00:00: 15 mL 2 [place] 00 (two) Medical times Branch daily. clindamycin 2019-11- No [id number] 300mg Take 1 Univers 300 mg 12-02 capsule by ity of capsule 00:00: 05:59 mouth 4 [place] 00 :00 (four) Medical times [place] daily for 10 days. Vital Signs Vital Name Observation Time Observation Value Comments Source Systolic blood 2020-11-21 15:56:00 145 mm[Hg] Univer sity of pressure [facility] Diastolic blood 2020-11-21 15:56:00 80 mm[Hg] Unive rsity of pressure [facility] Heart rate 2020-11-21 15:56:00 88 /min [facility] Body temperature 2020-11-21 15:56:00 37.17 Anni Univ ersity of [facility] Respiratory rate 2020-11-21 15:56:00 16 /min Univ ersity of [facility] Body height 2020-11-21 15:56:00 175.3 cm [facility] Body weight 2020-11-21 15:56:00 108.863 kg [facility] [place] [facility] [place] BMI 2020-11-21 15:56:00 35.44 kg/m2 [facility] Oxygen saturation in 2020-11-21 15:56:00 99 /min University of Arterial blood by [facility] Pulse oximetry Branch Systolic blood 2020-11-21 15:56:00 145 mm[Hg] Univer sity of pressure [facility] Diastolic blood 2020-11-21 15:56:00 80 mm[Hg] Unive rsity of pressure [facility] Heart rate 2020-11-21 15:56:00 88 /min [facility] [place] [facility] [place] Body temperature 2020-11-21 15:56:00 37.17 Anni Univ ers[facility] Respiratory rate 2020-11-21 15:56:00 16 /min Univ ers[facility] Body height 2020-11-21 15:56:00 175.3 cm [facility] [place] [facility] [place] Body weight 2020-11-21 15:56:00 108.863 kg [facility] [place] [facility] [place] BMI 2020-11-21 15:56:00 35.44 kg/m2 [facility] Oxygen saturation in 2020-11-21 15:56:00 99 /min [facility] of Arterial blood by [facility] Pulse oximetry Branch Procedures Procedure Date / Time Performed Performing Clinician Eulogio e NOTICE OF PRIVACY 2020-11-21 15:45:44 Doctor Unassigned, No Univ [facility] PRACTICES Name Medical Branch Encounters Start End Encounter Admission Attending Care Care Encounter Source Date/Time Date/Time Type Type Clinicians Facility Department ID 2020-11-21 2020-11-21 Emergency [facility] [id number] Univers 09:58:00 10:54:00 Myah Antunez [id number] josey [facility] [id number] [facility] [id number] [facility] 084 Branch 2020-11-21 2020-11-21 Emergency [facility] [id number] 09:58:00 10:54:00 Myah Antunez [id number] [place] [id number] [place] [id number] 2020-11-21 2020-11-21 Emergency [facility] ERT [id number] Univers 09:58:00 09:58:00 MYAH keith [facility] Results This patient has no known results.
[2023-09-23 18:16] LABS: Absolute Lymphocytes (CBC) 2.6 K/uL (0.7-4.9); Hematocrit 44.6 % (39.6-49.0); Lymphocytes % 20.6 % (15.3-44.8); MCV 87.8 fL (80-100); MPV 9.4 fL (7.6-11.3); Platelets 244 thou/uL (152-406); RBC Red Blood Cell Count 5.09 M/uL (4.33-5.43)
[2023-09-23] MEDS ORDERED: ONDANSETRON 4 MG/2 ML VIAL ONE (18:17)
[2023-09-23] MEDS ORDERED: NA CHLORIDE 0.9% 1,000 ML ONE (18:17)
--- NOTE | 2023-09-23 18:28 | RAD REPORT ---
EXAM DESCRIPTION: RADChest Single View09/23/2023 5:56 pm CLINICAL HISTORY: PALPITATIONS COMPARISON: Chest Single View dated 06/17/2022; Chest Single View dated 01/15/2022; Chest Single View dated 01/12/2021 TECHNIQUE: Portable AP view of the chest. FINDINGS: The lungs are clear. No pneumothorax or effusion. The cardiomediastinal contours are unre markable. IMPRESSION: No acute cardiopulmonary process.
[2023-09-23 18:38] LABS: BUN Blood Urea Nitrogen 8 mg/dL (7-18); Bicarbonate 26 mEq/L (21-32); Glomerular Filtration Rate 107 ml/min (=/>90); Glucose Level 263 mg/dL (74-106); Sodium Level 133 mEq/L (136-145)
[2023-09-23 18:39] LABS: Potassium 3.8 mEq/L (3.5-5.1); Troponin High Sensitivity < 3.0 pg/mL (<58.9)
--- NOTE | 2023-09-23 19:01 | EDPHYS ---
Physician Documentation [facility] Name: Tadeo Thakur Age: 37 yrs Sex: Male : 1985 Arrival Date: 09/23/2023 Time: 17:24 Bed 14 Private MD: ED Physician Citlalli Mathur HPI: 09/23 18:57 This 37 yrs old Male presents to ER via Ambulatory with complaints of Flu Symptoms, kb Palpitations, dehydration. 18:57 Patient is a 37-year-old male with a history of diabetes and hypertension who presents kb with cough, congestion, rhinorrhea, fever, chills, body aches. States cough started a couple days ago and the other symptoms started this morning. Went to the [place] clinic today and was sent here for elevated heart rate.. Historical: - Allergies: 17:46 PENICILLINS; cm10 - PMHx: 17:46 diabetes mellitus; Hypertensive disorder; PTSD; cm10 - PSHx: 17:46 Appendectomy; hernia repair; Knee-Left; cm10 - Immunization history:: Adult Immunizations unknown. - Social history:: Smoking status: Patient denies any tobacco usage or history of. ROS: 18:56 Abdomen/GI: Negative for abdominal pain, nausea, vomiting, diarrhea, and constipation, kb 18:56 Constitutional: Positive for body aches, chills, fatigue, fever, malaise, 18:56 ENT: Positive for rhinorrhea, sinus congestion, sore throat, 18:56 Respiratory: Positive for cough, 18:56 All other systems are negative, Exam: 18:14 ECG was reviewed by the Attending Physician. kb 18:32 Constitutional: This is a well developed, well nourished patient who is awake, alert, kb and in no acute distress. Head/Face: Normocephalic, atraumatic. ENT: Moist Mucous membranes Cardiovascular: Regular rate Respiratory: Respirations even and unlabored. No increased work of breathing. Talking in full sentences Abdomen/GI: Soft, non-tender. No distention Skin: Warm, dry with normal turgor. Normal color. MS/ Extremity: Pulses equal, no cyanosis. Neurovascular intact. Full, normal range of motion. Neuro: Awake and alert, GCS 15, oriented to person, place, time, and situation. Moves all extremities. Normal gait. Vital Signs: 17:44 BP 129 / 90; Pulse 110; Resp 18; Temp 99.4(O); Pulse Ox 96% on R/A; Weight 98.43 kg; cm10 Height 5 ft. 9 in. ; Pain 5/10; 18:23 BP 130 / 75; Pulse 103; Resp 19 S; Pulse Ox 95% on R/A; kc6 18:55 BP 117 / 67; Pulse 96; Resp 19 S; Temp 98.5(O); Pulse Ox 95% on R/A; kc6 17:44 Body Mass Index 32.04 (98.43 kg, 175.26 cm) cm10 17:44 Pain Scale: Adult cm10 MDM: 17:30 Patient medically screened. kb 18:56 Differential diagnosis: flu, covid, strep, uri, dka, hyperglycemia, dehydration. Data kb reviewed: vital signs, nurses notes. Counseling: I had a detailed discussion with the patient and/or guardian regarding the historical points, exam findings, and any diagnostic results supporting the discharge/admit diagnosis, lab results, radiology results, the need for outpatient follow up, a family practitioner, to return to the emergency department if symptoms worsen or persist or if there are any questions or concerns that arise at home. 09/23 17:44 Order name: Flu; Complete Time: 18:40 cm10 09/23 17:44 Order name: COVID-19 SARS RT PCR; Complete Time: 18:49 cm10 09/23 17:44 Order name: Strep cm10 09/23 17:44 Order name: CBC with Diff; Complete Time: 18:31 cm10 09/23 17:44 Order name: Basic Metabolic Panel; Complete Time: 18:40 cm10 09/23 17:44 Order name: Troponin High Sensitivity; Complete Time: 18:40 cm10 09/23 18:36 Order name: Throat Culture EDMS 09/23 17:44 Order name: Chest Single View XRAY; Complete Time: 18:31 cm10 09/23 17:44 Order name: EKG; Complete Time: 17:44 cm10 09/23 17:44 Order name: IV Start; Complete Time: 18:04 cm10 09/23 17:44 Order name: EKG - Nurse/Tech; Complete Time: 18:15 cm10 EC:14 Rate is 99 beats/min. Rhythm is regular. QRS Amory is Normal. DE interval is normal at kb 134 msec. QRS interval is normal at 94 msec. QT interval is normal at 451 msec. Administered Medications: 18:15 Drug: NS 0.9% IV 1000 ml IV at 1000 ml once Route: IV; Rate: 1000 ml; Site: right kc6 antecubital; 19:15 Follow up: Response: No adverse reaction; IV Status: Completed infusion; IV Intake: jw7 1000ml 18:15 Drug: Ondansetron IVP 4 mg IVP once; over 2 minutes Route: IVP; Site: right antecubital;[facility] 18:56 Follow up: Response: No adverse reaction; Nausea is decreased 6 Disposition Summary: 09/23/23 19:00 Discharge Ordered Notes: Location: Home kb Condition: Stable kb Diagnosis - Hyperglycemia, unspecified kb - Acute upper respiratory infection, unspecified kb Followup: kb - With: Emergency Department - When: As needed - Reason: Worsening of condition Followup: kb - With: Private Physician - When: 2 - 3 days - Reason: Recheck today's complaints, Continuance of care, Re-evaluation by your physician Discharge Instructions: - Discharge Summary Sheet kb - Upper Respiratory Infection, Adult, [id number] kb - Hyperglycemia, [id number] kb Forms: - Medication Reconciliation Form kb - Thank You Letter kb - Antibiotic Education kb - Prescription Opioid Use kb - Patient Portal Instructions kb - Leadership Thank You Letter kb - Work release form jw7 Signatures: Dispatcher [employer] Yaquelin Atwood FNP-C FNP-Izabela Ohara RN RN kc6 Asimta Saleem RN RN cm10 Emeli Parr RN jw7
--- NOTE | 2023-09-23 19:01 | ER ---
Nurse's Notes [facility] Name: Tadeo Thakur Age: 37 yrs Sex: Male : 1985 Arrival Date: 09/23/2023 Time: 17:24 Bed 14 Private MD: Diagnosis: Hyperglycemia, unspecified;Acute upper respiratory infection, unspecified Presentation: 09/23 17:44 Chief complaint: Patient states: cough, runny nose, sore throat, body aches onset this cm10 morning. Pt states that he was seen at the [place] clinic and was told to come to the ED due to having a high heart rate. Coronavirus screen: Vaccine status: Patient reports being unvaccinated. Client denies travel out of the [place] in the last 14 days. Ebola Screen: Patient denies travel to an Ebola-affected area in the 21 days before illness onset. No symptoms or risks identified at this time. Initial Sepsis Screen: Does the patient meet any 2 criteria? No. Patient's initial sepsis screen is negative. Does the patient have a suspected source of infection? No. Patient's initial sepsis screen is negative. Risk Assessment: Do you want to hurt yourself or someone else? Patient reports no desire to harm self or others. Onset of symptoms was September 23, 2023. 17:44 Method Of Arrival: Ambulatory cm10 17:44 Acuity: HAYDER 3 cm10 Historical: - Allergies: 17:46 PENICILLINS; cm10 - PMHx: 17:46 diabetes mellitus; Hypertensive disorder; PTSD; cm10 - PSHx: 17:46 Appendectomy; hernia repair; Knee-Left; cm10 - Immunization history:: Adult Immunizations unknown. - Social history:: Smoking status: Patient denies any tobacco usage or history of. Screenin:00 [facility] ED Fall Risk Assessment (Adult) History of falling in the last 3 months, kc6 including since admission No falls in past 3 months (0 pts) Confusion or Disorientation No (0 pts) Intoxicated or Sedated No (0 pts) Impaired Gait No (0 pts) Mobility Assist Device Used No (0 pt) Altered Elimination No (0 pt) Score/Fall Risk Level 0 - 2 = Low Risk. Abuse screen: Denies threats or abuse. Denies injuries from another. Nutritional screening: No deficits noted. Tuberculosis screening: No symptoms or risk factors identified. Assessment: 18:00 General: Appears in no apparent distress. comfortable, ill, Behavior is calm, kc6 cooperative, appropriate for age, Reports feeling ill for. Pain: Denies pain. Neuro: Level of Consciousness is awake, alert, obeys commands, Oriented to person, place, time, situation, Appropriate for age. Cardiovascular: Reports palpitations, Denies chest pain, Heart tones S1 S2 present Capillary refill < 3 seconds Rhythm is sinus tachycardia. Respiratory: Reports cough that is Airway is patent Trachea midline Respiratory effort is even, unlabored, Respiratory pattern is regular, symmetrical. GI: Reports nausea, Patient currently denies diarrhea, vomiting. : No signs and/or symptoms were reported regarding the genitourinary system. EENT: Reports difficulty swallowing nasal congestion. Derm: No signs and/or symptoms reported regarding the dermatologic system. Skin is intact, is healthy with good turgor, Skin is pink, warm \T\ dry. Musculoskeletal: No signs and/or symptoms reported regarding the musculoskeletal system. Circulation, motion, and sensation intact. Capillary refill < 3 seconds, Range of motion: intact in all extremities. 18:55 Reassessment: Patient appears in no apparent distress at this time. No changes from kc6 previously documented assessment. Patient and/or family updated on plan of care and expected duration. Pain level reassessed. Patient is alert, oriented x 3, equal unlabored respirations, skin warm/dry/pink. 19:05 Reassessment: Patient appears in no apparent distress at this time. No changes from jw7 previously documented assessment. Patient and/or family updated on plan of care and expected duration. Pain level reassessed. Patient is alert, oriented x 3, equal unlabored respirations, skin warm/dry/pink. Vital Signs: 17:44 BP 129 / 90; Pulse 110; Resp 18; Temp 99.4(O); Pulse Ox 96% on R/A; Weight 98.43 kg; cm10 Height 5 ft. 9 in. ; Pain 5/10; 18:23 BP 130 / 75; Pulse 103; Resp 19 S; Pulse Ox 95% on R/A; kc6 18:55 BP 117 / 67; Pulse 96; Resp 19 S; Temp 98.5(O); Pulse Ox 95% on R/A; kc6 17:44 Body Mass Index 32.04 (98.43 kg, 175.26 cm) cm10 17:44 Pain Scale: Adult cm10 ED Course: 17:27 Patient arrived in ED. im 17:30 Yaquelin Schwab FNP-C is [facility]. kb 17:30 Citlalli Mathur MD is Attending Physician. kb 17:46 Triage completed. cm10 17:46 Arm band placed on Patient placed in an exam room, on a stretcher. cm10 17:57 Chest Single View XRAY In Process Unspecified. EDMS 18:00 Patient has correct armband on for positive identification. Bed in low position. Call kc6 light in reach. Side rails up X 1. Client placed on continuous cardiac and pulse oximetry monitoring. NIBP monitoring applied. monitoring coordinator on. 18:01 Izabela Babcock, RN is Primary Nurse. kc6 18:04 Troponin High Sensitivity Sent. bc6 18:04 Basic Metabolic Panel Sent. bc6 18:04 CBC with Diff Sent. bc6 18:04 Strep Sent. bc6 18:04 COVID-19 SARS RT PCR Sent. bc6 18:04 Flu Sent. bc6 18:04 Inserted saline lock: 20 gauge in right antecubital area, using aseptic technique. bc6 Blood collected. 19:15 Provided Education on: discharge instructions. jw7 19:15 No provider procedures requiring assistance completed. IV discontinued, intact, jw7 bleeding controlled, No redness/swelling at site. Pressure dressing applied. Administered Medications: 18:15 Drug: NS 0.9% IV 1000 ml IV at 1000 ml once Route: IV; Rate: 1000 ml; Site: right kc6 antecubital; 19:15 Follow up: Response: No adverse reaction; IV Status: Completed infusion; IV Intake: jw7 1000ml 18:15 Drug: Ondansetron IVP 4 mg IVP once; over 2 minutes Route: IVP; Site: right antecubital;kc6 18:56 Follow up: Response: No adverse reaction; Nausea is decreased kc6 Medication: 19:15 VIS not applicable for this client. jw7 Intake: 19:15 IV: 1000ml; Total: 1000ml. jw7 Outcome: 19:00 Discharge ordered by . kb 19:15 Discharged to home ambulatory, jw7 19:15 Condition: stable 19:15 Discharge instructions given to patient, Instructed on discharge instructions, follow up and referral plans. Demonstrated understanding of instructions, follow-up care, 19:16 Patient left the ED. jw7 Signatures: Dispatcher [employer] EDYaquelin Mathews, DARIAN CASON-Emeli Ortiz RN RN jw7 Izabela Babcock RN RN kc6 Kari Hughes 6 Soo Noyola Clarissa RN RN cm10
[2023-09-23 19:47] VITALS: O2SAT 95
[2023-09-23 19:54] VITALS: BP 117/67; TEMP 98.5
== END 2023-09-23 19:16 | disposition home or self-care (01) ==
LOC: ER 17:24
DX: J06.9 Acute upper respiratory infection, unspecified (principal); E11.65 Type 2 diabetes mellitus with hyperglycemia; I10 Essential (primary) hypertension; Z11.52 Encounter for screening for COVID-19; Z88.0 Allergy status to penicillin
CPT/HCPCS: 96361; 93005; 87070; 85025; 80048; 36415; 87081; 84484; 87635; 87804 ×2; 71045; 96374; 99285; J2405; J7030